=== PATIENT | female | born 1980 | race Caucasian/White ===

== ENCOUNTER 2020-11-19 16:57 | Outpatient (CLI) | payer OTHER, SELFPAY ==
--- NOTE | ~2020-11-19 | MM_ITS ---
EXAMINATION: MM screening arelis BI w fred HISTORY: Screening TECHNIQUE: Craniocaudal and mediolateral oblique 3-D tomosynthesis images were obtained and synthetic 2-D images were generated. CAD analysis was submitted and interpreted. COMPARISON: No prior mammogram is available for comparison at this institution. BREAST PARENCHYMAL COMPOSITION: There are scattered areas of fibroglandular density. FINDINGS: There is no evidence of suspicious mass, calcification, or architectural distortion to sugg est malignancy in either breast. There has been no suspicious interval change. IMPRESSION: 1. No mammographic evidence of malignancy. 2. Recommend routine screening mammography in one year. BI-RADS Category 1: Negative Reviewed, dictated and finalized at location A.
== END 2020-11-19 16:58 | disposition home or self-care (01) ==
LOC: ANHIMG 17:00
PROVIDERS: PCP Family Medicine; Visit Provider Obstetrics & Gynecology
DX: Z12.31 Encounter for screening mammogram for malignant neoplasm of breast (principal)
CPT/HCPCS: 77063; 77067

== ENCOUNTER 2020-12-04 12:42 | Emergency (ER) | payer OTHER, SELFPAY ==
[2020-12-04 13:06] VITALS: BP 149/103; PULSE 91; RESP 16; TEMP 36.8; O2SAT 95
--- NOTE | 2020-12-04 13:10 | PC.NURSE ---
EDP Kanumuri notified of patient's presentation and symptoms. Per EDP Kanumconsuelo via verbal order read-back, order CBC, Trop baseline, CMP, and EKG.
--- NOTE | 2020-12-04 13:13 | ECG_ITS ---
Measurements Intervals [place] Rate: 82 P: 52 CO: 177 QRS: -19 QRSD: 99 T: 22 QT: 383 QTc: 449 Interpretive Statements SINUS RHYTHM INCOMPLETE RIGHT BUNDLE BRANCH BLOCK DELAYED PRECORDIAL R/S TRANSITION BORDERLINE ECG Electronically Signed On 12-04-2020 13:20:30 CDT by Emir Norman D.O.
[2020-12-04 13:33] LABS: Basophils Absolute Auto 0.1 K/mm3 (0.0-0.1); Basophils Percent Auto 0.6 % (0.2-1.2); Eosinophils Absolute Auto 0.1 K/mm3 (0-0.3); Eosinophils Percent Auto 1.6 % (0-4.4); Hematocrit 43.4 % (37.0-47.0); Immature Granulocyte Absolute 0.02 K/mm3 (0.00-0.031); Immature Granulocyte Percent A 0.2 % (0-0.5); Lymphocytes Absolute Auto 2.93 K/mm3 (0.9-3.2); Lymphocytes Percent Auto 36.5 % (18.3-44.2); Mean Corpuscular HGB Conc 32.3 g/dl (32-36); Mean Corpuscular Hemoglobin 28.9 pg (26-34); Mean Corpuscular Volume 89.5 fl (80-100); Mean Platelet Volume 10.6 fl (7.4-10.4); Monocytes Absolute Auto 0.4 K/mm3 (0.1-0.6); Neutrophils Absolute Auto 4.5 K/mm3 (1.3-6.7); Neutrophils Percent Auto 56.1 % (45.5-73.1); Platelet Count Result 252 k/mm3 (150-375); Red Blood Count 4.85 M/mm3 (4.2-5.4); Red Cell Distribution Width 14.3 % (11.5-14.5)
[2020-12-04 13:48] LABS: Alanine Aminotransferase 29 U/L (4-35); Albumin Level 4.1 g/dL (3.5-5.1); Alkaline Phosphatase 59 U/L (38-126); Anion Gap 8 mmol/L (8-16); Aspartate Amino Transferase 30 U/L (14-36); Bilirubin,Total 0.3 mg/dL (0.2-1.3); Blood Urea Nitrogen 12 mg/dL (7-17); Calcium 8.7 mg/dL (8.4-10.2); Carbon Dioxide 26 mmol/L (22-30); Chloride 108 mmol/L (98-107); Estimated CRCL calculation 125 ml/min; Estimated Glomerular Filt Rate > 60; Glucose 124 mg/dL (65-105); Potassium 3.2 mmol/L (3.4-5.0); Sodium 142 mmol/L (137-145)
[2020-12-04 14:00] LABS: Troponin I < 0.012 ng/mL (0.000-0.034)
[2020-12-04 14:19] VITALS: BP 159/85; PULSE 77; RESP 16; O2SAT 97
[2020-12-04 15:56] VITALS: BP 160/99; PULSE 76; RESP 13; O2SAT 99
[2020-12-04 15:58] VITALS: BP 160/99; PULSE 77; RESP 15; O2SAT 99
[2020-12-04] MEDS: cloNIDine HCL 0.1 MG TABLET 0.2 MG PO (16:34)
[2020-12-04 16:59] VITALS: BP 136/74; PULSE 82; RESP 17; O2SAT 100
--- NOTE | 2020-12-04 17:05 | ED.GENADULT ---
HPI - General Adult General Chief complaint: Recheck/Abnormal Lab/Rx Stated complaint: headache, tingling fingers, elevated bp Time Seen by Provider: 12/04/20 16:12 Source: patient Mode of arrival: ambulatory Limitations: no limitations History of Present Illness HPI narrative: 40-year-old with a history of hypertension here with complaints of headache and elevated blood pressure since this morning. Patient states that she was on blood pressure medication but it was discontinued by her primary doctor as it was stable for a long period of time however she states that she has put on significant amount of weight since last year and has not been exercising. She presently denies any headache or visual disturbances or chest pain. Patient states she was taking lisinopril at that time. Onset (ago): day(s) (1) Severity: mild Exacerbating factors: none Associated symptoms: denies other symptoms Related Data Allergies Allergy/AdvReac Type Severity Reaction Status Date / Time codeine Allergy Intermediate Nausea Verified 12/04/20 16:00 Pertussis Vaccines Allergy Intermediate Swelling Verified 12/04/20 16:00 PERTUSSIS IMMUNE GLOBULIN Allergy Mild Swelling Uncoded 12/04/20 16:00 Review of Systems Review of Systems: All systems reviewed & are unremarkable except as noted in HPI and below Constitutional: Constitutional: Reports no additional constitutional complaints Eyes: Eyes: Reports no additional eye complaints Cardiovascular: Cardiovascular: Reports no additional cardiovascular complaints Respiratory: Respiratory: Reports no additional respiratory complaints Gastrointestinal: Gastrointestinal: Reports no additional gastrointestinal complaints Musculoskeletal: Musculoskeletal: Reports no additional musculoskeletal complaints Neurologic: Reports system reviewed and no additional complaints, except as documented PMFSH Social History Social History Smoking status: Current every day smoker Exam Narrative: Exam Narrative: GENERAL: Well-appearing, well-nourished, and in no acute distress. HEAD: Normocephalic, atraumatic. EYES: PERRLA and EOMI. ENT: Nares clear, no rhinorrhea or epistaxis. Mucous membranes moist. NECK: Supple. CHEST: Clear to auscultation. No respiratory distress. HEART: Regular rate and rhythm. No murmur heard. Normal peripheral pulses. EXTREMITIES: Normal range of motion. No edema. SKIN: Warm, dry, no rash. NEURO: No focal deficits. Alert and oriented x3. PSYCH: Normal mood and affect. Course Course Emergency Course: I have given her clonidine 0.2 which brought her pressure down to 141/81. She does feel much better. I have reviewed her lab work and EKG findings with her. Advised her to start taking blood pressure medication and follow-up with Dr. Clark next week. Vital Signs Vital signs: Vital Signs Temperature 36.8 C 12/04/20 13:06 Pulse Rate 91 12/04/20 13:06 Respiratory Rate 16 12/04/20 13:06 Blood Pressure 149/103 H 12/04/20 13:06 Pulse Oximetry 95 12/04/20 13:06 Temperature 36.8 C 12/04/20 13:06 Pulse Rate 82 12/04/20 16:59 Respiratory Rate 17 12/04/20 16:59 Blood Pressure 136/74 12/04/20 16:59 Pulse Oximetry 100 12/04/20 16:59 Medical Decision Making Vital Signs Vital Signs: Vital Signs Temperature 36.8 C 12/04/20 13:06 Pulse Rate 91 12/04/20 13:06 Respiratory Rate 16 12/04/20 13:06 Blood Pressure 149/103 H 12/04/20 13:06 Pulse Oximetry 95 12/04/20 13:06 Temperature 36.8 C 12/04/20 13:06 Pulse Rate 82 12/04/20 16:59 Respiratory Rate 17 12/04/20 16:59 Blood Pressure 136/74 12/04/20 16:59 Pulse Oximetry 100 12/04/20 16:59 Lab Data Result diagrams: 12/04/20 13:23 12/04/20 13:23 Labs: Lab Results 12/04/20 12/04/20 Range/Units 13:23 13:23 WBC 8.0 (4.5-10.0) K/mm3 RBC 4.85 (4.2-5.4) M/mm3 Hgb 14.0 (12.0-15.0) g/dL Hct 43.4 (37.0-47.0) % MCV 89.5 (
[2020-12-04 17:19] VITALS: BP 141/81; PULSE 87; RESP 21; O2SAT 96
== END 2020-12-04 17:23 | disposition home or self-care (01) ==
PROVIDERS: Emergency Provider Family Medicine; PCP Family Medicine
DX: I10 Essential (primary) hypertension (principal)
CPT/HCPCS: 36415; 80053; 84484; 85025; 93005; 99284; A9270

== ENCOUNTER 2021-05-04 12:37 | Emergency (ER) | payer OTHER, SELFPAY ==
--- NOTE | 2021-05-04 12:40 | ED.URI ---
HPI - URI/Sore Throat General Chief Complaint: Upper Respiratory Infection Stated Complaint: Congestion,Cough Time Seen by Provider: 05/04/21 12:40 Source: patient and RN notes reviewed History of Present Illness HPI Narrative: Patient is a 40-year-old female presents the urgent care with complaints of cough and congestion for the last 2 weeks. Patient also reports of green nasal drainage. Patient states that everyone in her home is sick right now . States that everybody had tested negative for Covid when the symptoms first began. Patient states that she has been taking DayQuil, NyQuil and using cough drops without much improvement. Patient is a daily smoker and does continue to smoke throughout her illness. Patient denies of any shortness of breath or chest pain. Denies of sore throat. No other acute complaints. No acute distress noted. Patient aware of the plan of care. Some parts of this dictation were generated by voice recognition software and may contain typographical and/or grammatical inaccuracies. Related Data Allergies Allergy/AdvReac Type Severity Reaction Status Date / Time codeine Allergy Intermediate Nausea Verified 12/04/20 16:00 Pertussis Vaccines Allergy Intermediate Swelling Verified 12/04/20 16:00 PERTUSSIS IMMUNE GLOBULIN Allergy Mild Swelling Uncoded 12/04/20 16:00 Review of Systems Review of Systems: CONSTITUTIONAL: Denies fever, chills, or sweats. EYES: Denies visual changes, redness, or discharge. ENT: Reports of sinus congestion, postnasal drainage and rhinorrhea CARDIOVASCULAR: Denies chest pain, palpitations, or edema. RESPIRATORY: Reports of cough without dyspnea GASTROINTESTINAL: Denies abdominal pain, nausea, vomiting, or diarrhea. GENITOURINARY: Denies dysuria or hematuria. SKIN: Denies rash or itching. MUSCULOSKELETAL: Denies back pain, joint pain, or myalgia. NEUROLOGIC: Denies headache, numbness, or weakness. All other systems reviewed are negative, except as documented in HPI. PMFSH Social History Social History Smoking status: Current every day smoker Comments At the time of my signature, I reviewed and agree with the nursing past medical, surgical, social, and family history. There is no relevant family history pertinent to the patient complaint. Exam Narrative: GENERAL: This is a well-nourished, well-developed patient, in no apparent distress. HEAD: normocephalic, atraumatic. EYES: PERRL. Sclera clear/white. Vision is grossly intact. EARS: External ears normal, auditory canals clear and without drainage, TMs normal without perforation. Hearing grossly intact. NOSE: External nose normal with no obvious nasal discharge, nares without redness, clear rhinorrhea. THROAT: Mucous membranes moist, posterior pharynx clear. Postnasal drainage NECK: Neck supple, non-tender without lymphadenopathy CARDIOVASCULAR: Regular rate and rhythm without murmurs, gallops, or rubs. RESPIRATORY: Mild crackles bibasilar SKIN: warm, intact with no suspicious lesions or rash, good texture and turgor. NEURO: awake, alert, and oriented to person, place and time. There were no obvious focal neurologic abnormalities. EXTREMITIES: No clubbing, cyanosis, or edema. Course Vital Signs Vital signs: Vital Signs Temperature 98.0 F 05/04/21 12:43 Pulse Rate 102 H 05/04/21 12:43 Respiratory Rate 12 05/04/21 12:43 Blood Pressure 120/66 05/04/21 12:43 Pulse Oximetry 98 05/04/21 12:43 Temperature 98.0 F 05/04/21 12:43 Pulse Rate 102 H 05/04/21 12:43 Respiratory Rate 12 05/04/21 12:43 Blood Pressure 120/66 05/04/21 12:43 Pulse Oximetry 98 05/04/21 12:43 Reviewed MDM - URI/Sore Throat MDM Narrative Medical decision making narrative: Advised the patient to complete the oral antibiotic regimen as prescribed. Patient is aware that antibiotics do not treat viruses and viruses can last approximately 3 weeks. Therefore if the antibiotic does not seem to be improving your symptoms, co
[2021-05-04 12:43] VITALS: BP 120/66; PULSE 102; RESP 12; TEMP 36.7; O2SAT 98
== END 2021-05-04 13:05 | disposition home or self-care (01) ==
PROVIDERS: Emergency Provider Nurse Practitioner Family
DX: J40 Bronchitis, not specified as acute or chronic (principal); J32.9 Chronic sinusitis, unspecified; F17.200 Nicotine dependence, unspecified, uncomplicated
CPT/HCPCS: 99213; G0463

== ENCOUNTER 2022-02-28 12:02 | Emergency (ER) | payer OTHER, SELFPAY ==
--- NOTE | 2022-02-28 12:06 | ED.URI ---
HPI - URI/Sore Throat General Chief Complaint: Upper Respiratory Infection Stated Complaint: URI SYMPTOMS Time Seen by Provider: 02/28/22 12:06 Source: patient Mode of arrival: ambulatory Limitations: no limitations History of Present Illness HPI Narrative: Ms. Oconnell is a 41-year-old female presenting to the clinic today with complaints of upper respiratory symptoms x1 week. She reports she is having a productive cough with green phlegm, sinus pressure, nasal congestion, green nasal discharge. She denies any fever or chills. She is a current smoker. Does have history of COPD MD elicited complaint: sore throat and nasal congestion Related Data Home Medications Medication Instructions Recorded Confirmed albuterol sulfate 90 mcg/actuation inhalation 05/04/21 aerosol inhaler atorvastatin 10 mg tablet 05/04/21 budesonide-formoterol HFA 160 inhalation 05/04/21 mcg-4.5 mcg/actuation aerosol inhaler (Symbicort) bupropion HCl 100 mg tablet,12 hr PO 05/04/21 sustained-release calcium carbonate 600 mg-vitamin tablet 05/04/21 D3 5 mcg (200 unit) tablet (Calcium 600 + D(3)) escitalopram oxalate 10 mg tablet mg 05/04/21 estradiol 0.5 mg tablet mg 05/04/21 furosemide 20 mg tablet 05/04/21 gabapentin 800 mg tablet 05/04/21 hydrocodone 10 mg-acetaminophen tablet 05/04/21 325 mg tablet lisinopril 20 mg tablet 05/04/21 meloxicam 15 mg tablet 05/04/21 omeprazole 20 mg capsule,delayed 05/04/21 release sertraline 100 mg tablet 100 mg PO DAILY 05/04/21 spironolactone 25 mg tablet 25 mg PO DAILY 05/04/21 02/28/22 Allergies Allergy/AdvReac Type Severity Reaction Status Date / Time codeine Allergy Intermediate Nausea Verified 02/28/22 12:35 Pertussis Vaccines Allergy Intermediate Swelling Verified 02/28/22 12:35 PERTUSSIS IMMUNE GLOBULIN Allergy Mild Swelling Uncoded 02/28/22 12:35 Review of Systems Review of Systems: Pertinent positives per HPI. Patient denies any fever, chills, rash, visual changes, dizziness, shortness of breath, chest pain, palpitations, nausea, vomiting, diarrhea, constipation, abdominal pain, or any urinary issues. [facility] Social History Social History (Reviewed 02/28/22 @ 12:06 by MARC Caicedo Smoking status: Current every day smoker Comments At the time of my signature, I reviewed and agree with the nursing past medical, surgical, social, and family history. There is no relevant family history pertinent to the patient complaint. Exam Narrative: General: Well-developed, obese, in no apparent distress Head: Normocephalic, atraumatic Eyes: Pupils equally round and reactive to light bilaterally, EOM intact, sclera and conjunctive clear, no discharge, lids normal Ears: TMs intact and c dull, ear canals clear, no drainage, grossly hearing normal. Nose: Nares patent, no discharge, no inflammation, no sinus tenderness. Mouth: Oral pharynx without lesions or masses, good dentition, MMM. Oropharynx red, tonsillar enlargement without exudate Neck: Supple, trachea midline, mild enlargement of anterior cervical nodes, no thyroid masses or goiter palpable. Cardio: Regular rate and rhythm, s1 and s2 normal, no murmur appreciated. Resp: Diminished breath sounds in the bases otherwise clear, no rhonchi, rales, wheezing or rubs Course Course Emergency Course: Portions of this record may have been created with voice recognition software. Level of Care: Express Care Visit Vital Signs Vital signs: Vital Signs Temperature 37.1 C 02/28/22 12:15 Pulse Rate 109 H 02/28/22 12:15 Respiratory Rate 16 02/28/22 12:15 Blood Pressure 130/92 H 02/28/22 12:15 Pulse Oximetry 97 02/28/22 12:15 Oxygen Delivery Room Air 02/28/22 12:15 Temperature 37.1 C 02/28/22 12:15 Pulse Rate 109 H 02/28/22 12:15 Respiratory Rate 16 02/28/22 12:15 Blood Pressure 130/92 H 02/28/22 12:15 Pulse Oximetry 97 02/28/22 12:15 Oxygen Delivery Room Air
[2022-02-28 12:15] VITALS: BP 130/92; PULSE 109; RESP 16; TEMP 37.1; O2SAT 97
== END 2022-02-28 13:39 | disposition home or self-care (01) ==
PROVIDERS: Emergency Provider Nurse Practitioner Family; PCP Physician Assistant
DX: J01.10 Acute frontal sinusitis, unspecified (principal); Z20.822 Contact with and (suspected) exposure to COVID-19; F17.200 Nicotine dependence, unspecified, uncomplicated; E78.00 Pure hypercholesterolemia, unspecified; I10 Essential (primary) hypertension; J44.9 Chronic obstructive pulmonary disease, unspecified; Z86.16 Personal history of COVID-19
CPT/HCPCS: 87426; 99213; C9803; G0463

== ENCOUNTER 2022-03-11 09:12 | Emergency (ER) | payer OTHER, SELFPAY ==
--- NOTE | 2022-03-11 09:14 | ED.URI ---
HPI - URI/Sore Throat General Chief Complaint: Upper Respiratory Infection Stated Complaint: COUGH/LOSING VOICE Time Seen by Provider: 03/11/22 09:45 Source: patient and RN notes reviewed Mode of arrival: ambulatory Limitations: no limitations History of Present Illness HPI Narrative: 41-year-old female presents with concern for ongoing chest congestion, cough, burning with cough, hoarse voice. Reports she was treated 11 days ago without relief. She reports she has an appointment with her primary care doctor next week. She reports she has been busy taking care of sick family members to see her primary doctor. She reports she has been using multiple [id number] remedies such as [id number] cold medicine sinus medicine, sinus rinses without relief. MD elicited complaint: cough and other (Chest congestion) Related Data Home Medications Medication Instructions Recorded Confirmed albuterol sulfate 90 mcg/actuation 90 mcg inhalation PRN PRN 05/04/21 02/28/22 aerosol inhaler Shortness Of Breath Or Wheezing atorvastatin 10 mg tablet 10 mg PO DAILY 05/04/21 02/28/22 budesonide-formoterol HFA 160 1 inh inhalation DAILY 05/04/21 02/28/22 mcg-4.5 mcg/actuation aerosol inhaler (Symbicort) bupropion HCl 100 mg tablet,12 hr 100 mg PO DAILY 05/04/21 02/28/22 sustained-release calcium carbonate 600 mg-vitamin 1 tablet PO DAILY 05/04/21 02/28/22 D3 5 mcg (200 unit) tablet (Calcium 600 + D(3)) escitalopram oxalate 10 mg tablet 10 mg PO DAILY 05/04/21 02/28/22 estradiol 0.5 mg tablet 0.5 mg PO DAILY 05/04/21 02/28/22 furosemide 20 mg tablet 20 mg PO DAILY 05/04/21 02/28/22 gabapentin 800 mg tablet 800 mg PO QID 05/04/21 02/28/22 hydrocodone 10 mg-acetaminophen 1 tablet PO PRN PRN Pain 05/04/21 02/28/22 325 mg tablet meloxicam 15 mg tablet 15 mg PO PRN PRN Pain 05/04/21 02/28/22 omeprazole 20 mg capsule,delayed 20 mg PO DAILY 05/04/21 02/28/22 release sertraline 100 mg tablet 100 mg PO DAILY 05/04/21 02/28/22 spironolactone 25 mg tablet 25 mg PO DAILY 05/04/21 02/28/22 Allergies Allergy/AdvReac Type Severity Reaction Status Date / Time codeine Allergy Intermediate Nausea Verified 03/11/22 09:32 Pertussis Vaccines Allergy Intermediate Swelling Verified 03/11/22 09:32 PERTUSSIS IMMUNE GLOBULIN Allergy Mild Swelling Uncoded 03/11/22 09:32 Review of Systems Review of Systems: CONSTITUTIONAL: Report malaise EYES: Denies visual changes, redness, or discharge. ENT: Reports rhinorrhea, congestion, hoarse voice. Denies sinus pain, otalgia and sore throat. CARDIOVASCULAR: Denies chest pain, palpitations, or edema. RESPIRATORY: Reports cough, chest congestion, chest burning, dyspnea. GASTROINTESTINAL: Denies abdominal pain, nausea, vomiting, diarrhea SKIN: Denies rash or itching. MUSCULOSKELETAL: Denies myalgia. NEUROLOGIC: Denies headache. All systems reviewed & are unremarkable except as noted in HPI and below PMFSH Social History Social History Smoking status: Current every day smoker Comments At time of signature, agree with nursing past medical, surgical, social and family history. There is no relevant family history pertinent to the presenting complaint Exam Narrative: GENERAL: Nontoxic appearing and in no acute distress. HEAD: Normocephalic EYES: PERRLA, conjunctivae clear ENT: Nares clear, clear discharge. Mucous membranes moist. TM pearly forte with dull light reflex bilaterally; no tragal tenderness. Oropharynx not erythematous without lesions. Tonsils not enlarged and without exudate, no drooling, no hoarseness, no trismus, uvula midline. NECK: Supple. No lymphadenopathy CHEST: Scattered wheeze, aeration fair, breath sounds equal. No rhonchi, rales, or stridor. No respiratory distress, speaks in full sentences. HEART: Regular rate and rhythm. No murmur heard. SKIN: Warm, dry, no rash. NEURO: Alert and oriented x3. PSYCH: Tearful Course Co
[2022-03-11 09:28] VITALS: BP 139/81; PULSE 90; RESP 16; TEMP 36.3; O2SAT 98
[2022-03-11] MEDS: methylPREDNISolone SOD SUCC 125 MG VIAL IM (09:55)
[2022-03-11] MEDS: ALBUTEROL SULFATE NEB 2.5 MG/3 ML INH INHALATION (09:56)
[2022-03-11] MEDS: IPRATROPIUM BR 0.02% INH SOLN 0.5 MG/2.5 ML VIAL INHALATION (09:56)
== END 2022-03-11 10:53 | disposition home or self-care (01) ==
PROVIDERS: Emergency Provider Nurse Practitioner; PCP Physician Assistant
DX: J06.9 Acute upper respiratory infection, unspecified (principal); F17.200 Nicotine dependence, unspecified, uncomplicated
CPT/HCPCS: 94640; 96372; 99213; G0463; J2930

== ENCOUNTER 2022-09-29 17:42 | Emergency (ER) | payer OTHER, SELFPAY ==
--- NOTE | ~2022-09-29 | CT_ITS ---
EXAMINATION: CT lumbar spine wo con DATE: 09/29/2022 21:08 INDICATION: Low back pain TECHNIQUE: Computed tomography (CT) of the lumbar spine was performed without intravenous contrast. T he dose-length product (DLP) was 1471.21 mGy-cm. Iterative reconstruction was used. COMPARISON: None FINDINGS: No fracture, dislocation, or subluxation. There is mild loss of intervertebral disc space h eight at L3-4 and L5-S1. The vertebral body heights are maintained. IMPRESSION: 1. No acute osseous abnormality. Reviewed, dictated and finalized at location F.
[2022-09-29 18:03] VITALS: BP 116/67; PULSE 99; RESP 18; TEMP 36.9; O2SAT 98
[2022-09-29] MEDS: KETOROLAC (*BKC) 60 MG/2 ML VIAL IM (20:58)
[2022-09-29] MEDS: diazePAM INJ (*CRX) 10 MG/2 ML SYRINGE 2 MG IM (20:58)
--- NOTE | 2022-09-29 21:22 | ED.BACK ---
HPI - Back Pain/Injury General Chief Complaint: Back Pain/Injury Stated Complaint: back pain Time Seen by Provider: 09/29/22 20:03 Source: patient Mode of arrival: ambulatory Limitations: no limitations History of Present Illness HPI Narrative: Patient is a 42-year-old female who presents to the ED with report of lower back pain. Patient reports she turned over in bed 2 nights ago and experienced pain in her low back. She has had persistent pain since then, worse with any type of movement, twisting, walking. Patient has been taking ibuprofen and her Flexeril at home without much improvement. She last had medication at 3 PM. Denies any abdominal pain, nausea, vomiting, fevers, saddle anesthesia, numbness, weakness, incontinence. Patient reports a history of bulging discs in the past. Related Data Home Medications Medication Instructions Recorded Confirmed albuterol sulfate 90 mcg/actuation 90 mcg inhalation PRN PRN 05/04/21 02/28/22 aerosol inhaler Shortness Of Breath Or Wheezing atorvastatin 10 mg tablet 10 mg PO DAILY 05/04/21 02/28/22 budesonide-formoterol HFA 160 1 inh inhalation DAILY 05/04/21 02/28/22 mcg-4.5 mcg/actuation aerosol inhaler (Symbicort) bupropion HCl 100 mg tablet,12 hr 100 mg PO DAILY 05/04/21 02/28/22 sustained-release calcium carbonate 600 mg-vitamin 1 tablet PO DAILY 05/04/21 02/28/22 D3 5 mcg (200 unit) tablet (Calcium 600 + D(3)) escitalopram oxalate 10 mg tablet 10 mg PO DAILY 05/04/21 02/28/22 estradiol 0.5 mg tablet 0.5 mg PO DAILY 05/04/21 02/28/22 furosemide 20 mg tablet 20 mg PO DAILY 05/04/21 02/28/22 gabapentin 800 mg tablet 800 mg PO QID 05/04/21 02/28/22 hydrocodone 10 mg-acetaminophen 1 tablet PO PRN PRN Pain 05/04/21 02/28/22 325 mg tablet meloxicam 15 mg tablet 15 mg PO PRN PRN Pain 05/04/21 02/28/22 omeprazole 20 mg capsule,delayed 20 mg PO DAILY 05/04/21 02/28/22 release sertraline 100 mg tablet 100 mg PO DAILY 05/04/21 02/28/22 spironolactone 25 mg tablet 25 mg PO DAILY 05/04/21 02/28/22 Allergies Allergy/AdvReac Type Severity Reaction Status Date / Time codeine Allergy Intermediate Nausea Verified 09/29/22 20:03 Pertussis Vaccines Allergy Intermediate Swelling Verified 09/29/22 20:03 PERTUSSIS IMMUNE GLOBULIN Allergy Mild Swelling Uncoded 09/29/22 18:07 Review of Systems Review of Systems: CONSTITUTIONAL: Denies fever, chills, or sweats. CARDIOVASCULAR: Denies chest pain. RESPIRATORY: Denies dyspnea. GASTROINTESTINAL: Denies incontinence, abdominal pain, nausea, vomiting. GENITOURINARY: Denies incontinence, dysuria or hematuria. SKIN: Denies rash or itching. MUSCULOSKELETAL: See HPI. NEUROLOGIC: See HPI. All systems reviewed & are unremarkable except as noted in HPI and below PMFSH Past Medical History Medical History Crohn's disease (02/28/12) Depression (02/28/12) GERD (gastroesophageal reflux disease) (02/28/12) Surgical History Surgical History No pertinent past surgical history Social History Social History Smoking status: Current every day smoker Exam Narrative: GENERAL: Well appearing, obese, non-toxic, in no acute distress. HEAD: Normocephalic, atraumatic. NECK: Supple. No adenopathy, no masses. RESPIRATORY: Airway patent, respirations nonlabored. Clear to auscultation bilaterally, no rales, rhonchi, wheezing. CARDIOVASCULAR: Regular rate and rhythm without murmurs, rubs, or gallops. Radial pulses 2+ and equal bilaterally. ABDOMINAL: Soft, nontender, nondistended, no hepatosplenomegaly. Normoactive BS. MUSCULOSKELETAL: Moves all extremities. Strength/ROM intact without gross deformities. Tenderness throughout midline lumbar spine and paraspinal musculature bilaterally. No bony deformities or palpable step-offs. SKIN: Warm, dry, normal color. No rashes. N
[2022-09-29] MEDS: HYDROcodone/acetaminophen (*CRX) 5-325 MG TABLET 1 TAB PO (22:03)
[2022-09-29] MEDS: methylPREDNISolone SOD SUCC 125 MG VIAL IM (22:28)
[2022-09-29 23:15] VITALS: BP 135/91; PULSE 96; RESP 16; O2SAT 99
== END 2022-09-29 23:16 | disposition home or self-care (01) ==
PROVIDERS: Emergency Provider Physician Assistant; PCP Internal Medicine Gastroenterology
DX: S39.012A Strain of muscle, fascia and tendon of lower back, initial encounter (principal); K50.90 Crohn's disease, unspecified, without complications; K21.9 Gastro-esophageal reflux disease without esophagitis; F32.A Depression, unspecified; F17.200 Nicotine dependence, unspecified, uncomplicated; X50.9XXA Other and unspecified overexertion or strenuous movements or postures, initial encounter
CPT/HCPCS: 72131; 96372; 99284; A9270; J1885; J2930; J3360

== ENCOUNTER 2022-10-11 12:42 | Outpatient (CLI) | payer OTHER, SELFPAY ==
--- NOTE | ~2022-10-11 | XR_ITS ---
EXAMINATION:XR cervical spine 4-5V DATE: 10/11/2022 13:08 INDICATION: Neck pain TECHNIQUE: AP, lateral, lateral swimmers and odontoid views of the cervical spine are provided. COMPARISON: None FINDINGS: There is reversal of the normal cervical lordosis. Alignment is normal. The odontoid proces s is intact. No fracture is identified. The vertebral body heights are maintained. There is mild loss of intervertebral disc space height at C4-5, C5-6, and C6-7. Small degenerative osteophytes project from the anterior endplates of multiple vertebral bodies. Prevertebral soft tissues are normal. IMPRESSION: 1. Mild cervical spondylosis without acute findings. Reviewed, dictated and finalized at location L.
--- NOTE | ~2022-10-11 | XR_ITS ---
EXAMINATION: XR shoulder RT min 2V INDICATION: Right shoulder pain TECHNIQUE: Four views of the right shoulder are submitted. COMPARISON: None FINDINGS: Normal alignment. No fracture. There is moderate osteoarthritis of the acromioclavicular an d glenohumeral joints. Soft tissues are unremarkable. IMPRESSION: 1. Osteoarthritis without acute osseous abnormality. Reviewed, dictated and finalized at location L.
== END 2022-10-11 12:43 | disposition home or self-care (01) ==
PROVIDERS: PCP Internal Medicine Gastroenterology; Visit Provider Internal Medicine Gastroenterology
DX: M19.011 Primary osteoarthritis, right shoulder (principal); M47.812 Spondylosis without myelopathy or radiculopathy, cervical region
CPT/HCPCS: 72050; 73030

== ENCOUNTER 2022-10-11 23:37 | Emergency (ER) | payer OTHER, SELFPAY ==
--- NOTE | ~2022-10-11 | XR_ITS ---
EXAMINATION: XR chest 2V DATE: 10/12/2022 00:08 INDICATION: Left chest pain. TECHNIQUE: Frontal and lateral views of the chest were obtained. COMPARISON: Chest 2 views 03/04/2009 FINDINGS: The chest demonstrates clear lungs without pneumonia, pleural effusion, or pneumothorax. Th e heart size is normal. IMPRESSION: 1. No acute cardiopulmonary disease. Reviewed, dictated and finalized at location A.
[2022-10-11 23:39] VITALS: BP 127/73; PULSE 82; RESP 18; TEMP 36.6; O2SAT 99
--- NOTE | 2022-10-11 23:41 | ECG_ITS ---
Measurements Intervals [place] Rate: 76 P: 71 [place]: 179 QRS: 42 QRSD: 96 T: 53 QT: 387 QTc: 438 Interpretive Statements SINUS RHYTHM POSSIBLE LEFT ATRIAL ENLARGEMENT [-0.1mV P WAVE IN V1/V2] INCOMPLETE RIGHT BUNDLE BRANCH BLOCK LOW QRS VOLTAGE IN PRECORDIAL LEADS [QRS DEFLECTION < 1.0 mV IN CHEST LEADS] COMPARED TO ECG 12/04/2020 13:17:49 NO SIGNIFICANT CHANGES Electronically Signed On 10-12-2022 9:44:29 CDT by Song Lamar M.D.
[2022-10-11 23:47] VITALS: PULSE 73; RESP 11; O2SAT 99
[2022-10-11 23:52] LABS: Basophils Absolute Auto 0.1 K/mm3 (0.0-0.1); Basophils Percent Auto 0.4 % (0.2-1.2); Eosinophils Absolute Auto 0.4 K/mm3 (0-0.3); Eosinophils Percent Auto 3.1 % (0-4.4); Hematocrit 42.3 % (37.0-47.0); Hemoglobin 13.8 g/dL (12.0-15.0); Immature Granulocyte Absolute 0.06 K/mm3 (0.00-0.031); Immature Granulocyte Percent A 0.5 % (0-0.5); Lymphocytes Absolute Auto 4.44 K/mm3 (0.9-3.2); Lymphocytes Percent Auto 37.1 % (18.3-44.2); Mean Corpuscular HGB Conc 32.6 g/dl (32-36); Mean Corpuscular Hemoglobin 29.1 pg (26-34); Mean Corpuscular Volume 89.1 fl (80-100); Mean Platelet Volume 10.4 fl (7.4-10.4); Monocytes Absolute Auto 0.5 K/mm3 (0.1-0.6); Monocytes Percent Auto 4.2 % (2.6-8.5); Neutrophils Absolute Auto 6.6 K/mm3 (1.3-6.7); Neutrophils Percent Auto 54.7 % (45.5-73.1); Platelet Count Result 255 k/mm3 (150-375); Red Blood Count 4.75 M/mm3 (4.2-5.4); Red Cell Distribution Width 14.4 % (11.5-14.5)
[2022-10-12] VITALS: O2SAT 96
[2022-10-12 00:01] VITALS: BP 114/57; PULSE 80; RESP 18; O2SAT 96
[2022-10-12 00:06] LABS: Prothrombin Time 13.1 Seconds (11.1-14.7)
[2022-10-12 00:07] LABS: Partial Thromboplastin Time 27.1 SECONDS (22.3-36.8)
[2022-10-12 00:10] LABS: Alanine Aminotransferase 29 U/L (6-35); Albumin Level 4.2 g/dL (3.5-5.1); Alkaline Phosphatase 75 U/L (38-126); Anion Gap 8 mmol/L (8-16); Aspartate Amino Transferase 24 U/L (14-36); Bilirubin,Total 0.6 mg/dL (0.2-1.3); Blood Urea Nitrogen 16 mg/dL (7-17); Calcium 8.9 mg/dL (8.4-10.2); Carbon Dioxide 29 mmol/L (22-30); Chloride 102 mmol/L (98-107); Estimated CRCL calculation 164 ml/min; Estimated Glomerular Filt Rate > 60; Glucose 132 mg/dL (65-110); Potassium 3.4 mmol/L (3.4-5.0); Sodium 139 mmol/L (137-145)
[2022-10-12 00:15] VITALS: PULSE 78; RESP 20; O2SAT 98
[2022-10-12 00:22] LABS: Troponin I < 0.012 ng/mL (0.000-0.034)
[2022-10-12] MEDS: ACETAMINOPHEN 500 MG TABLET 1000 MG PO (01:20)
[2022-10-12] MEDS: methocarbamoL 750 MG TABLET 1500 MG PO (01:21)
[2022-10-12] MEDS: IBUPROFEN 400 MG TABLET 800 MG PO (01:21)
--- NOTE | 2022-10-12 02:07 | ED.GENADULT ---
HPI - General Adult General Chief complaint: Chest Pain Stated complaint: CP X 1 WEEK Time Seen by Provider: 10/11/22 23:41 History of Present Illness HPI narrative: this is a 42-year-old female presenting ED with chief complaint of left-sided chest pain. Pain is located over the outside of her left breast, left shoulder and left trapezius. Been going on for 1 week as a stabbing/aching pain. Seven out 10 intensity and comes and goes. It is worse when she moves her arm and shoulder. She has not taken any pain medication. She has noticed she has had a cough although she has a chronic smoker's cough. No fever chills, shortness of breath abdominal pain nausea or vomiting. Related Data Home Medications Medication Instructions Recorded Confirmed albuterol sulfate 90 mcg/actuation 90 mcg inhalation PRN PRN 05/04/21 02/28/22 aerosol inhaler Shortness Of Breath Or Wheezing atorvastatin 10 mg tablet 10 mg PO DAILY 05/04/21 02/28/22 budesonide-formoterol HFA 160 1 inh inhalation DAILY 05/04/21 02/28/22 mcg-4.5 mcg/actuation aerosol inhaler (Symbicort) bupropion HCl 100 mg tablet,12 hr 100 mg PO DAILY 05/04/21 02/28/22 sustained-release calcium carbonate 600 mg-vitamin 1 tablet PO DAILY 05/04/21 02/28/22 D3 5 mcg (200 unit) tablet (Calcium 600 + D(3)) escitalopram oxalate 10 mg tablet 10 mg PO DAILY 05/04/21 02/28/22 estradiol 0.5 mg tablet 0.5 mg PO DAILY 05/04/21 02/28/22 furosemide 20 mg tablet 20 mg PO DAILY 05/04/21 02/28/22 gabapentin 800 mg tablet 800 mg PO QID 05/04/21 02/28/22 hydrocodone 10 mg-acetaminophen 1 tablet PO PRN PRN Pain 05/04/21 02/28/22 325 mg tablet meloxicam 15 mg tablet 15 mg PO PRN PRN Pain 05/04/21 02/28/22 omeprazole 20 mg capsule,delayed 20 mg PO DAILY 05/04/21 02/28/22 release sertraline 100 mg tablet 100 mg PO DAILY 05/04/21 02/28/22 spironolactone 25 mg tablet 25 mg PO DAILY 05/04/21 02/28/22 Allergies Allergy/AdvReac Type Severity Reaction Status Date / Time codeine Allergy Intermediate Nausea Verified 09/29/22 20:03 Pertussis Vaccines Allergy Intermediate Swelling Verified 09/29/22 20:03 PERTUSSIS IMMUNE GLOBULIN Allergy Mild Swelling Uncoded 09/29/22 18:07 [facility] Past Medical History Medical History Crohn's disease (02/28/12) Depression (02/28/12) GERD (gastroesophageal reflux disease) (02/28/12) Surgical History Surgical History No pertinent past surgical history Social History Social History Smoking status: Current every day smoker Exam Narrative: APPEARANCE: No apparent distress. Head: atraumatic. EYES: EOMI, NOSE: Atraumatic NECK: Trachea midline RESPIRATORY: No increased rate of breathing CARDIOVASCULAR: RRR, ABDOMINAL: Non-distended MUSCULOSKELETAl: Patient has tenderness to palpation over the left pectoral muscles, left trapezius and left posterior deltoid, pain is reproducible when she moves her arm NEURO: Alert. Moving 4/4 extremities SKIN:: Warm, dry. Normal color PSYCHIATRIC: Normal affect Course Vital Signs Vital signs: Vital Signs Temperature 98 F 10/11/22 23:39 Pulse Rate 82 10/11/22 23:39 Respiratory Rate 18 10/11/22 23:39 Blood Pressure 127/73 10/11/22 23:39 Pulse Oximetry 99 10/11/22 23:39 Oxygen Delivery Room Air 10/11/22 23:39 Temperature 98 F 10/12/22 02:42 Pulse Rate 77 10/12/22 02:42 Respiratory Rate 18 10/12/22 02:42 Blood Pressure 123/79 10/12/22 02:42 Pulse Oximetry 99 10/12/22 02:42 Oxygen Delivery Room Air 10/11/22 23:39 Medical Decision Making MDM Narrative Medical decision making narrative: -Presentation: 42-year-old female presenting with chief complaint of chest/shoulder pain -DDX includes but is not limited to: MSK pain, shoulder impingement, pneumonia, P -Co-morbidities complicating care:
[2022-10-12 02:42] VITALS: BP 123/79; PULSE 77; RESP 18; TEMP 36.6; O2SAT 99
[2022-10-12 05:07] LABS: Troponin I < 0.012 ng/mL (0.000-0.034)
[2022-10-12 05:21] VITALS: BP 118/69; PULSE 77; RESP 18; TEMP 37.2; O2SAT 99
== END 2022-10-12 05:22 | disposition home or self-care (01) ==
PROVIDERS: Emergency Provider Emergency Medicine; PCP Internal Medicine Gastroenterology
DX: M25.512 Pain in left shoulder (principal); F32.A Depression, unspecified; K21.9 Gastro-esophageal reflux disease without esophagitis
CPT/HCPCS: 36415; 71046; 72050; 73030; 80053; 84484; 85025; 85610; 85730; 93005; 99284; A9270

== ENCOUNTER 2022-12-01 08:46 | Emergency (ER) | payer OTHER, SELFPAY ==
--- NOTE | ~2022-12-01 | XR_ITS ---
EXAMINATION: XR chest 2V DATE: 12/01/2022 10:00 INDICATION: Cough. TECHNIQUE: Frontal and lateral views of the chest were obtained. COMPARISON: Chest 2 views 10/12/2022 FINDINGS: The chest demonstrates clear lungs without pneumonia, pleural effusion, or pneumothorax. Th e heart size is normal. IMPRESSION: 1. No acute cardiopulmonary disease. Reviewed, dictated and finalized at location A.
[2022-12-01 08:57] VITALS: BP 131/70; PULSE 98; RESP 20; TEMP 36.1; O2SAT 99
--- NOTE | 2022-12-01 09:29 | ED.URI ---
HPI - URI/Sore Throat General Chief Complaint: Upper Respiratory Infection Stated Complaint: cough,sore throat,chest pain Time Seen by Provider: 12/01/22 09:11 Source: patient and RN notes reviewed Mode of arrival: ambulatory Limitations: no limitations History of Present Illness HPI Narrative: Patient presents today complaining of a 10 day history of productive cough and a 4 day history of sore throat. Associated symptoms include rhinorrhea. Denies congestion or fever. Denies shortness of breath. She has been gargling with salt water. Currently rates her pain 8/10. She has tried no [id number] medications for symptoms prior to arrival. Reports recent exposure to strep throat. with similar symptoms. Related Data Home Medications Medication Instructions Recorded Confirmed albuterol sulfate 90 mcg/actuation 90 mcg inhalation PRN PRN 05/04/21 12/01/22 aerosol inhaler Shortness Of Breath Or Wheezing atorvastatin 10 mg tablet 10 mg PO DAILY 05/04/21 12/01/22 budesonide-formoterol HFA 160 1 inh inhalation DAILY 05/04/21 12/01/22 mcg-4.5 mcg/actuation aerosol inhaler (Symbicort) calcium carbonate 600 mg-vitamin 1 tablet PO DAILY 05/04/21 12/01/22 D3 5 mcg (200 unit) tablet (Calcium 600 + D(3)) furosemide 20 mg tablet 20 mg PO DAILY 05/04/21 12/01/22 gabapentin 800 mg tablet 800 mg PO QID 05/04/21 12/01/22 omeprazole 20 mg capsule,delayed 20 mg PO DAILY 05/04/21 12/01/22 release spironolactone 25 mg tablet 25 mg PO DAILY 05/04/21 12/01/22 acetaminophen 500 mg tablet 1,000 mg PO TID PRN Pain 12/01/22 12/01/22 cyclobenzaprine 10 mg tablet 10 mg PO TID 12/01/22 12/01/22 duloxetine 60 mg capsule,delayed 60 mg PO DAILY 12/01/22 12/01/22 release tramadol 50 mg tablet 50 mg PO TID 12/01/22 12/01/22 Allergies Allergy/AdvReac Type Severity Reaction Status Date / Time codeine Allergy Intermediate Nausea Verified 12/01/22 08:58 Pertussis Vaccines Allergy Intermediate Swelling Verified 12/01/22 08:58 PERTUSSIS IMMUNE GLOBULIN Allergy Mild Swelling Uncoded 12/01/22 08:58 Review of Systems Review of Systems: CONSTITUTIONAL: Denies body aches, fever, chills, or sweats. EYES: Denies visual changes, redness, or discharge. ENT: Denies congestion, or otalgia.+ rhinorrhea, sore throat CARDIOVASCULAR: Denies chest pain, palpitations, or edema. RESPIRATORY: Denies dyspnea.+ cough GASTROINTESTINAL: Denies abdominal pain, nausea, vomiting, or diarrhea. GENITOURINARY: Denies dysuria or hematuria. SKIN: Denies rash, itching, or wounds. MUSCULOSKELETAL: Denies back pain, joint pain, or myalgia. NEUROLOGIC: Denies headache, numbness, tingling, or weakness. PSYCH: Denies depression or anxiety. [facility] Past Medical History Medical History Crohn's disease (02/28/12) Depression (02/28/12) GERD (gastroesophageal reflux disease) (02/28/12) Surgical History Surgical History No pertinent past surgical history Family History Family History Father Hypertension Malignant neoplasm of prostate Family history of malignant neoplasm Mother Hypertension Family history of diabetes mellitus in first degree relative Depression Family history of attention deficit hyperactivity disorder (ADHD) Sibling Asthma Family history of attention deficit hyperactivity disorder (ADHD) Other Diabetes mellitus Social History Social History Smoking status: Current every day smoker Second hand tobacco smoke exposure: Yes Alcohol intake: never Comments At time of signature, I have reviewed and agree with nursing past medical, surgical, social and family history unless otherwise noted. Please see nursing chart for further information. There is no relevant family history pertine
== END 2022-12-01 10:29 | disposition home or self-care (01) ==
PROVIDERS: Emergency Provider Nurse Practitioner; PCP Internal Medicine Gastroenterology
DX: J01.90 Acute sinusitis, unspecified (principal); F17.200 Nicotine dependence, unspecified, uncomplicated; K50.90 Crohn's disease, unspecified, without complications; K21.9 Gastro-esophageal reflux disease without esophagitis
CPT/HCPCS: 71046; 87081; 87880; 99213; G0463

== ENCOUNTER 2023-10-27 19:22 | Emergency (ER) | payer OTHER, SELFPAY ==
--- NOTE | 2023-10-27 19:23 | ED.URI ---
HPI - URI/Sore Throat General Chief Complaint: Upper Respiratory Infection Stated Complaint: BODY ACHES/VOMITING/CONGESTION Time Seen by Provider: 10/27/23 19:23 Source: patient Mode of arrival: ambulatory Limitations: no limitations History of Present Illness HPI Narrative: Lexie is a 43-year-old female patient presenting to the clinic today with complaints of body aches, headache, sore throat, cough, nasal congestion, nausea, and vomiting x3 days. She reports no known fever. MD elicited complaint: sore throat and nasal congestion Related Data Home Medications Medication Instructions Recorded Confirmed albuterol sulfate 90 mcg/actuation 90 mcg inhalation PRN PRN 05/04/21 10/27/23 aerosol inhaler Shortness Of Breath Or Wheezing atorvastatin 10 mg tablet 10 mg PO DAILY 05/04/21 10/27/23 budesonide-formoterol HFA 160 1 inh inhalation DAILY 05/04/21 10/27/23 mcg-4.5 mcg/actuation aerosol inhaler (Symbicort) furosemide 20 mg tablet 20 mg PO DAILY 05/04/21 10/27/23 gabapentin 800 mg tablet 800 mg PO QID 05/04/21 10/27/23 omeprazole 20 mg capsule,delayed 20 mg PO DAILY 05/04/21 10/27/23 release spironolactone 25 mg tablet 25 mg PO DAILY 05/04/21 10/27/23 acetaminophen 500 mg tablet 1,000 mg PO TID PRN Pain 12/01/22 10/27/23 cyclobenzaprine 10 mg tablet 10 mg PO TID 12/01/22 10/27/23 duloxetine 60 mg capsule,delayed 60 mg PO DAILY 12/01/22 10/27/23 release tramadol 50 mg tablet 50 mg PO TID 12/01/22 10/27/23 Allergies Allergy/AdvReac Type Severity Reaction Status Date / Time codeine Allergy Intermediate Nausea Verified 10/27/23 19:28 Pertussis Vaccines Allergy Intermediate Swelling Verified 10/27/23 19:28 PERTUSSIS IMMUNE GLOBULIN Allergy Mild Swelling Uncoded 10/27/23 19:28 Review of Systems Review of Systems: Pertinent positives per HPI. Patient denies any fever, rash, visual changes, dizziness, shortness of breath, chest pain, palpitations, diarrhea, constipation, abdominal pain, or any urinary issues. [facility] Past Medical History Medical History Crohn's disease (02/28/12) Depression (02/28/12) GERD (gastroesophageal reflux disease) (02/28/12) Surgical History Surgical History No pertinent past surgical history Family History Family History Father Hypertension Malignant neoplasm of prostate Family history of malignant neoplasm Mother Hypertension Family history of diabetes mellitus in first degree relative Depression Family history of attention deficit hyperactivity disorder (ADHD) Sibling Asthma Family history of attention deficit hyperactivity disorder (ADHD) Other Diabetes mellitus Social History Social History Smoking status: Current every day smoker Second hand tobacco smoke exposure: Yes Alcohol intake: never Comments At the time of my signature, I reviewed and agree with the nursing past medical, surgical, social, and family history. There is no relevant family history pertinent to the patient complaint. Exam Narrative: General: Well-developed, well nourished, in no apparent distress Head: Normocephalic, atraumatic Eyes: Pupils equally round and reactive to light bilaterally, EOM intact, sclera and conjunctive clear, no discharge, lids normal Ears: TMs intact and congested, ear canals clear, no drainage, grossly hearing normal. Nose: Nares patent, clear nasal discharge, no inflammation, no sinus tenderness. Mouth: Oral pharynx red without lesions or masses, good dentition, MMM. Neck: Supple, trachea midline, no enlargement of anterior or posterior cervical nodes, no thyroid masses or goiter palpable. Cardio: Regular rate and rhythm, s1 and s2 normal, no murmur appreciated. Resp: Clear to auscultation bilaterally, no rhonch
[2023-10-27 19:39] VITALS: BP 131/87; PULSE 84; RESP 16; TEMP 36.3; O2SAT 99
== END 2023-10-27 19:51 | disposition home or self-care (01) ==
PROVIDERS: Emergency Provider Nurse Practitioner Family; PCP Internal Medicine Gastroenterology
DX: B34.9 Viral infection, unspecified (principal); J06.9 Acute upper respiratory infection, unspecified; J02.9 Acute pharyngitis, unspecified; Z20.822 Contact with and (suspected) exposure to COVID-19; F17.200 Nicotine dependence, unspecified, uncomplicated; K21.9 Gastro-esophageal reflux disease without esophagitis; K50.90 Crohn's disease, unspecified, without complications
CPT/HCPCS: 87081; 87426; 87804; 87880; 99213; G0463

== ENCOUNTER 2024-07-29 10:00 | Emergency (ER) | payer OTHER, SELFPAY ==
[2024-07-29 10:12] VITALS: BP 141/88; PULSE 90; RESP 16; TEMP 36.4; O2SAT 99
--- NOTE | 2024-07-29 10:23 | ED_ITS ---
HPI - General Adult General Chief complaint: Upper Respiratory Infection Stated complaint: Flu Symptoms Time Seen by Provider: 07/29/24 10:25 Source: patient, family, RN notes reviewed and old records reviewed Mode of arrival: ambulatory Limitations: no limitations History of Present Illness HPI narrative: 44-year-old female who presents to [facility] with complaints a 5 day history body aches, stuffy nose, ears feel clogged, productive cough. Patient reports she has taken Tylenol for her symptoms and is using her inhalers as prescribed, Patient reports that she does have COPD and she smokes daily 1/2 ppd of cigarettes.. Patient states that daughter tested positive for flu. MD complaint: productive cough, stuffy nose ears feel clogged productive cough Onset (ago): day(s) (5) Severity: moderate Treatments prior to arrival: other (Tylenol and inhalers) Related Data Home Medications ?Medication ?Instructions ?Recorded ?Confirmed ?Last Taken ?Type albuterol sulfate 90 mcg/actuation 90 mcg inhalation PRN PRN 05/04/21 07/29/24 Unknown History aerosol inhaler Shortness Of Breath Or Wheezing atorvastatin 10 mg tablet 10 mg PO DAILY 05/04/21 07/29/24 Unknown History budesonide-formoterol HFA 160 1 inh inhalation DAILY 05/04/21 07/29/24 Unknown History mcg-4.5 mcg/actuation aerosol inhaler (Symbicort) furosemide 20 mg tablet 20 mg PO PRN water retention 05/04/21 07/29/24 Unknown History gabapentin 800 mg tablet 800 mg PO QID 05/04/21 07/29/24 Unknown History omeprazole 20 mg capsule,delayed 20 mg PO DAILY 05/04/21 07/29/24 Unknown History release spironolactone 25 mg tablet 25 mg PO PRN PRN wheezing 05/04/21 07/29/24 Unknown History acetaminophen 500 mg tablet 1,000 mg PO TID PRN Pain 12/01/22 07/29/24 Unknown History cyclobenzaprine 10 mg tablet 10 mg PO TID 12/01/22 07/29/24 Unknown History duloxetine 60 mg capsule,delayed 60 mg PO DAILY 12/01/22 07/29/24 Unknown History release tramadol 50 mg tablet 50 mg PO TID 12/01/22 07/29/24 Unknown History Allergies Allergy/AdvReac Type Severity Reaction Status Date / Time codeine Allergy Intermediate Nausea Verified 07/29/24 10:05 Pertussis Vaccines Allergy Intermediate Swelling Verified 07/29/24 10:05 PERTUSSIS IMMUNE GLOBULIN Allergy Mild Swelling Uncoded 07/29/24 10:05 Review of Systems Review of Systems: CONSTITUTIONAL:Reports malaise, chills, sweats, no known fever. EYES: Denies visual changes, redness, or discharge. ENT: Reports rhinorrhea, congestion, sinus pain, no otalgia and no sore throat. CARDIOVASCULAR: Denies chest pain, palpitations, or edema. RESPIRATORY: Reports productive cough.? Denies acute dyspnea. GASTROINTESTINAL: Denies abdominal pain, nausea, vomiting, diarrhea SKIN: Denies rash or itching. MUSCULOSKELETAL: Reports myalgia. NEUROLOGIC: Denies headache. All systems reviewed & are unremarkable except as noted in HPI and below PMFSH Past Medical History Medical History AUDIE was hospitalized on June 2021 COPD (chronic obstructive pulmonary disease) GERD (gastroesophageal reflux disease) (02/28/12) Depression (02/28/12) Crohn's disease (02/28/12) Surgical History Surgical History Hx of cholecystectomy Family History Family History Father Hypertension Malignant neoplasm of prostate Family history of malignant neoplasm Mother Hypertension Family history of diabetes mellitus in first degree relative Depression Family history of attention deficit hyperactivity disorder (ADHD) Sibling Asthma Family history of attention deficit hyperactivity disorder (ADHD) Other Diabetes mellitus Social History Social History Smoking status: Current every day smoker Second hand tobacco smoke exposure: Yes Alcohol intake: never Comments At time of signature, agree with nursing past medical, surgical, social and family history. There is no relevant family history pertinent to the presenting complaint Exam Narrative: GENERAL: Well-appearing, well-nourished, and in no acute distress. HEAD: Normocephalic EYES: PERRLA, conjunctivae clear ENT: Nares clear, turbinates edematous and erythematous, clear discharge. Mucous membranes moist. TM pearly forte with dull light reflex bilaterally; no tragal tenderness. Oropharynx erythematous without lesions. Tonsils not enlarged and without exudate, no drooling, no hoarseness, no trismus, uvula midline. NECK: Supple. No lymphadenopathy CHEST: scattered wheezing on auscultation, breath sounds equal.+ wheezing, no rhonchi, rales, or stridor. No respiratory distress, speaks in full sentences. cough noted SAO2 99% on room air HEART: Regular rate and rhythm. No murmur heard. SKIN: Warm, dry, no rash. NEURO: Alert and oriented x3. PSYCH: Normal mood and affect Course Course Emergency Course: Patient is aware of diagnosis, understands and agrees to treatment plan.? Anticipatory guidance given.? Patient agrees to follow-up as directed and is aware of reasons to seek care at the emergency department. Portions of this record may have been created with voice recognition software Level of Care: Express Care Visit Vital Signs Vital signs: Vital Signs Temperature 36.4 C L 07/29/24 10:12 Pulse Rate 90 07/29/24 10:12 Respiratory Rate 16 07/29/24 10:12 Blood Pressure 141/88 H 07/29/24 10:12 Pulse Oximetry 99 07/29/24 10:12 Temperature 36.4 C L 07/29/24 10:12 Pulse Rate 90 07/29/24 10:12 Respiratory Rate 16 07/29/24 10:12 Blood Pressure 141/88 H 07/29/24 10:12 Pulse Oximetry 99 07/29/24 10:12 Reviewed Medical Decision Making Differential Diagnosis Differential Diagnosis: URI, viral infection, COPD exacerbation, influenza, acute cough Medical Records Medical records reviewed: Yes I reviewed the external patient's medical records. Vital Signs Vital Signs: Vital Signs Temperature 36.4 C L 07/29/24 10:12 Pulse Rate 90 07/29/24 10:12 Respiratory Rate 16 07/29/24 10:12 Blood Pressure 141/88 H 07/29/24 10:12 Pulse Oximetry 99 07/29/24 10:12 Temperature 36.4 C L 07/29/24 10:12 Pulse Rate 90 07/29/24 10:12 Respiratory Rate 16 07/29/24 10:12 Blood Pressure 141/88 H 07/29/24 10:12 Pulse Oximetry 99 07/29/24 10:12 reviewed Lab Data Lab results reviewed: Yes I reviewed the patient's lab results. Lab results narrative: Influenza A negative, Influenza B negative Labs: Lab Results 07/29/24 Range/Units 10:25 POC Influenza A Ag Negative (Negative) POC Influenza B Ag Negative (Negative) reviewed Critical Care Time Critical Care Time Critical Care Time: No Discharge Plan Discharge Clinical Impression: COPD exacerbation Patient Disposition: Home, Self-Care Condition: Stable Instructions: Antibiotic Form, COPD (Chronic Obstructive Pulmonary Disease) (ED) Additional Instructions: Increase fluids especially juices and water [id number] cough and cold medicine of your choice for your symptoms Zyrtec Claritin or Yahaira daily include Coricidin brand decongestant Continue your inhaler/nebulizer as directed use your rescue inhaler which is albuterol for the next 2 days at least 3 times daily to expand lungs Steroids as directed--take with food heat to the face 20-30 minutes 4-6 times a day for pain Salt water gargles, throat lozenges or throat sprays as desired Antibiotic as directed--finished the medication If your symptoms persist, change or worsen significantly before you can contact your personal physician then please, without delay, go to the emergency department for further evaluation. Follow-up with PCP in 7-10 days or sooner if needed Follow up with PCP soon in regards to your blood pressure which is elevated above threshold for referral. Blood pressure above 120/80 may indicate pre- hypertension.141/88 STOP SMOKING Patient Language: Hungarian Prescriptions: New prednisone 20 mg tablet 20 mg PO BID Qty: 10 0RF azithromycin 250 mg tablet See Rx Instructions .ROUTE .COMPLEX Qty: 6 0RF Rx Instructions: For 250 mg dose pack: take 500 mg today (day 1), then 250 mg for 4 days (days 2-5) No Action atorvastatin 10 mg tablet 10 mg PO DAILY spironolactone 25 mg tablet 25 mg PO PRN PRN (Reason: wheezing) gabapentin 800 mg tablet 800 mg PO QID omeprazole 20 mg capsule,delayed release(DR/EC) 20 mg PO DAILY furosemide 20 mg tablet 20 mg PO PRN albuterol sulfate 90 mcg/actuation HFA aerosol inhaler 90 mcg INHALATION PRN PRN (Reason: Shortness Of Breath Or Wheezing) budesonide-formoterol [Symbicort] 160-4.5 mcg/actuation HFA aerosol inhaler 1 inh INHALATION DAILY cyclobenzaprine 10 mg tablet 10 mg PO TID tramadol 50 mg tablet 50 mg PO TID duloxetine 60 mg capsule,delayed release(DR/EC) 60 mg PO DAILY acetaminophen 500 mg tablet 1,000 mg PO TID PRN (Reason: Pain) ibuprofen 600 mg tablet 600 mg PO TID PRN (Reason: pain) Qty: 20 0RF lisinopril [Zestril] 20 mg tablet 20 mg PO DAILY Qty: 30 0RF ibuprofen 800 mg tablet 800 mg PO TID PRN (Reason: pain) 7 Days Qty: 21 0RF Follow-up/Referrals: PHYSICIAN,CARDIOPULMONARY TECHNOLOGIST CHIEF [Primary Care Provider] - Time of Disposition: 10:41 Quality [place] Coma Scale Eyes: Open Verbal: Oriented and Alert Motor: Follows Commands [place] Coma Total Score: 15
[2024-07-29 10:30] LABS: EDINFLUASCREEN Negative (Negative); EDINFLUBSCREEN Negative (Negative)
== END 2024-07-29 10:44 | disposition home or self-care (01) ==
PROVIDERS: Emergency Provider Registered Nurse
DX: J44.1 Chronic obstructive pulmonary disease with (acute) exacerbation (principal); K21.9 Gastro-esophageal reflux disease without esophagitis; K50.90 Crohn's disease, unspecified, without complications; F17.210 Nicotine dependence, cigarettes, uncomplicated
CPT/HCPCS: 87804; 99213; G0463

== ENCOUNTER 2024-09-26 00:25 | Emergency (ER) | payer OTHER, SELFPAY ==
--- NOTE | ~2024-09-26 | CT_ITS ---
CT of the Abdomen and Pelvis: Indication: Abdominal pain Technique: 2.5 mm axial scans were obtained through the abdomen and pelvis following intravenous adm inistration of 100 cc of Omnipaque 350. Dose reduction technique was used on this scan by utilizing a utomated exposure control and iterative reconstruction technique. The dose-length product (DLP) was 1 690.66 mGy-cm. Findings: Scans through the lung bases are unremarkable. There is diffuse hepatic steatosis. Cholecystectomy clips are present. The spleen, pancreas, adrenals and kidneys are within normal limits. No evidence of aortic aneurysm. No lymphadenopathy. There are multiple minimally distended small bowel loops with decompressed distal small bowel. Findin gs could reflect early or partial small bowel obstruction. Images through the pelvis were performed. Urinary bladder unremarkable. Status post hysterectomy. No pelvic mass seen. No ascites. Impression: Possible early or partial small bowel obstruction, versus enterocolitis. Diffuse hepatic steatosis. Reviewed, dictated and finalized at [facility]. Impression: Possible early or partial small bowel obstruction, versus enterocolitis. Diffuse hepatic steatosis.
[2024-09-26 00:26] VITALS: BP 130/99; PULSE 114; RESP 20; TEMP 37; O2SAT 96
[2024-09-26 00:45] LABS: Basophils Absolute Auto 0.1 K/mm3 (0.0-0.1); Basophils Percent Auto 0.4 % (0.2-1.2); Eosinophils Absolute Auto 0.2 K/mm3 (0-0.3); Eosinophils Percent Auto 0.9 % (0-4.4); Hematocrit 45.5 % (37.0-47.0); Hemoglobin 14.7 g/dL (12.0-15.0); Immature Granulocyte Absolute 0.14 K/mm3 (0.00-0.031); Immature Granulocyte Percent A 0.7 % (0-0.5); Lymphocytes Percent Auto 34.1 % (18.3-44.2); Mean Corpuscular HGB Conc 32.3 g/dl (32-36); Mean Corpuscular Hemoglobin 28.9 pg (26-34); Mean Corpuscular Volume 89.6 fl (80-100); Mean Platelet Volume 10.2 fl (7.4-10.4); Monocytes Absolute Auto 0.9 K/mm3 (0.1-0.6); Monocytes Percent Auto 4.7 % (2.6-8.5); Neutrophils Absolute Auto 11.3 K/mm3 (1.3-6.7); Neutrophils Percent Auto 59.2 % (45.5-73.1); Platelet Count Result 361 k/mm3 (150-375); Red Blood Count 5.08 M/mm3 (4.2-5.4); Red Cell Distribution Width 15.3 % (11.5-14.5); White Blood Count 19.1 K/mm3 (4.5-10.0)
[2024-09-26 00:51] LABS: Alanine Aminotransferase 27 U/L (6-35); Albumin Level 4.8 g/dL (3.5-5.1); Alkaline Phosphatase 87 U/L (38-126); Anion Gap 17 mmol/L (4-12); Aspartate Amino Transferase 26 U/L (14-36); Bilirubin,Total 0.5 mg/dL (0.2-1.3); Blood Urea Nitrogen 18 mg/dL (7-17); Calcium 9.9 mg/dL (8.4-10.2); Carbon Dioxide 19 mmol/L (22-30); Chloride 105 mmol/L (98-107); Estimated CRCL calculation 88 ml/min; Estimated Glomerular Filt Rate 60; Glucose 218 mg/dL (65-110); Lipase 104 U/L (23-300); Potassium 3.8 mmol/L (3.4-5.0); Sodium 141 mmol/L (137-145)
[2024-09-26] MEDS: ONDANSETRON INJ 4 MG/2 ML VIAL IV PUSH (01:01)
[2024-09-26] MEDS: SODIUM CHLORIDE 0.9% IV 1,000 ML 999 ML IV CONT ×2 (01:01→05:15)
[2024-09-26] MEDS: HYDROmorphone HCL INJ (*CRX) 1 MG/ML SYR IV PUSH ×4 (01:01→05:15)
--- OUTSIDE RECORDS SUMMARY | 2024-09-26 01:38 | XMS_ITS | Referral Summary ---
Author Organization [facility] Address [address] [place] [address] Care Team Providers Care Degreasing Solution Reclaimer Name Role Phone No, Physician Primary Care Provider [phone] Allergies Active Allergy Reactions Criticality Noted Date Comments Pertussis Vaccines Other (See comments) Low 021 Medications multivitamin tablet daily Active albuterol HFA (PROVENTIL HFA,VENTOLIN HFA,PROAIR HFA) 90 mcg/actuation inhaler INHALE 2 PUFFS BY MOUTH EVERY 4 HOURS NEEDED 10/05/19 17 Active atorvastatin (LIPITOR) 10 mg tablet atorvastatin 10 mg tablet Active buPROPion SR (WELLBUTRIN SR) 100 mg 12 hr tablet bupropion HCl SR 100 mg tablet,12 hr sustained-release TAKE 1 TABLET BY MOUTH TWICE DAILY 03/13/20 20 Active calcium carbonate-vitamin D3 1500 mg (600 mg elemental) -200 units per tablet Calcium 600 + D(3) 600 mg (1,500 mg)-200 unit tablet TAKE 1 TABLET BY MOUTH TWICE DAILY Active cyclobenzaprine (FLEXERIL) 10 mg tablet cyclobenzaprine 10 mg tablet Active estradioL (ESTRACE) 0.5 mg tablet estradiol 0.5 mg tablet TAKE 1 TABLET BY MOUTH ONCE DAILY 10/05/19 17 Active furosemide (LASIX) 20 mg tablet furosemide 20 mg tablet TAKE 1 TABLET BY MOUTH ONCE DAILY Active HYDROcodone-aceta minophen (NORCO) 10-325 mg per tablet hydrocodone 10 mg-acetaminophen 325 mg tablet TAKE 1 TABLET BY MOUTH 4 TIMES DAILY Activ e ketorolac (TORADOL) 10 mg tablet ketorolac 10 mg tablet Active linaCLOtide (Linzess) 145 mcg capsule Linzess 145 mcg capsule TAKE 1 CAPSULE BY MOUTH DAILY 03/19/20 20 Active lisinopriL (PRINIVIL,ZESTRIL ) 20 mg tablet lisinopril 20 mg tablet Active omeprazole (PriLOSEC) 40 mg capsule Take by mouth 10/05/19 17 Active ondansetron ODT (ZOFRAN-ODT) 4 mg disintegrating tablet ondansetron 4 mg disintegrating tablet DISSOLVE 1 TABLET ON THE TONGUE FOUR TIMES DAILY NEEDED 02/10/20 18 Active psyllium (METAMUCIL) 3.4 gram packet Metamucil 3.4 gram/5.4 gram oral powder Week 1: Take 1 teaspoon mixed in water by mouth daily Week 2: Take 2 teaspoons mixed in water by mouth daily Week 3 and afterwards: Take 1 Tablespoon mixed in water by mouth daily 11/14/19 20 Active raNITIdine (ZANTAC) 300 mg tablet ranitidine 300 mg tablet 03/09/20 19 Active sertraline (ZOLOFT) 100 mg tablet sertraline 100 mg tablet Active sodium phosphates (FLEET) 19-7 gram/118 mL enema 133 mL 02/12/20 20 Active spironolactone (ALDACTONE) 25 mg tablet 01/16/20 21 Active sulfamethoxazole- trimethoprim (BACTRIM DS) 800-160 mg per tablet sulfamethoxazole 800 mg-trimethoprim 160 mg tablet Active venlafaxine XR (EFFEXOR-XR) 37.5 mg 24 hr capsule daily Act jeaneth gabapentin (NEURONTIN) 300 mg capsule Take 1 capsule (300 mg total) by mouth 3 (three) times a day 90 capsule 06/28/19 22 Active Active Problems Problem Noted Date Diagnosed Date COVID-19 06/28/2021 Assessment & Plan (06/28/2021 4:03 AM ELECTRONIC CALIBRATION TECHNICIAN): Per patient has been symptomatic with cough, pleuritic chest pain, fatigue since at least 06/18. Known sick contact of father. Once extubated 06/26 has been on room air. -COVID-19 (+) 06/25/21 -CT-C with c/f viral PNA, as well as aspiration PNA. -isolation per hospital proctocol with airborne and contact precautions. Pneumonia 06/28/2021 Assessment & Plan (06/28/2021 3:52 AM ELECTRONIC CALIBRATION TECHNICIAN): 06/25 CT-C with concerns for aspiration PNA +/- organizing PNA related to COVID-19 infection. Intubated for AMS, since extubation on room air. -continue antibiotics as elsewhere Sciatica 01/19/2021 Assessment & Plan (06/28/2021 3:51 AM ELECTRONIC CALIBRATION TECHNICIAN): Hx of sciatica for which she is prescribed: -flexeril 10mg TID PRN -gabapentin 800mg QID -Schlater 10-3215 BID PRN In setting of AMS/GABRIELLE dose reduced to -flexeril 5mg TID PRN -gabapentin 200mg TID -Schlater 10-325mg QID PRN Obesity 01/19/2021 Hypertensive disorder 01/19/2021 Assessment & Plan (06/28/2021 3:54 AM ELECTRONIC CALIBRATION TECHNICIAN): Home mediations: Furosemide 20mg QAM, lisinopril 20mg QAM, sprionolactone 25mg QAM all held since admission with shock, and subsequent normal blood pressure Hyperlipidemia 01/19/2021 Assessment & Plan (06/28/2021 3:54 AM ELECTRONIC CALIBRATION TECHNICIAN): Home prescription for atorvastatin 10mg, can be resumed on discharge Gastroesophageal reflux disease 01/19/2021 Assessment & Plan (06/28/2021 3:56 AM ELECTRONIC CALIBRATION TECHNICIAN): Holding home PPI, can resume on discharge Exposure to viral hepatitis 01/19/2021 Depressive disorder 01/19/2021 Anxiety 01/19/2021 Assessment & Plan (06/28/2021 4:05 AM ELECTRONIC CALIBRATION TECHNICIAN): Chart history of anxiety/depression. Patient is not sure if she is on medications currently. She has multiple diagnosis that would benefit from outpatient beharvioral therapy (IBS, chronic back pain) -started on sertaraline 25m QAM in ICU -started on seroquel 25mg QPM PRN in ICU Acute tonsillitis 01/19/2021 Assessment & Plan (01/19/2021 3:01 PM CDT): GERD with some dysphagia Acute sinusitis 01/19/2021 Abnormality of hormone 01/19/2021 Short leg syndrome, acquired 01/19/2021 Irritable bowel syndrome wit h both constipation and diarrhea 01/19/2021 Assessment & Plan (06/28/2021 3:53 AM ELECTRONIC CALIBRATION TECHNICIAN): Per chart review IBS (has seen GI previously) with GERD and abdominal pain Assessment & Plan (01/19/2021 2:55 PM CDT): Increase dietqry firbeto 3 fruits/d Dysphagia 01/19/2021 Overview (01/19/2021): Added automatically from request for surgery [id number] History of total hysterectomy 08/03/2020 Assessment & Plan (06/28/2021 3:56 AM ELECTRONIC CALIBRATION TECHNICIAN): Per patient due to endometriosis. States due to SE of hot flashes since she is on estradiol 0.5mg QAM, holding while inpateint. Diarrhea 07/16/2010 Constipation 07/16/2010 Resolved Problems Problem Noted Date Diagnosed Date Resolved Date Shock 06/28/2021 06/28/2021 Assessment & Plan (06/28/2021 3:47 AM ELECTRONIC CALIBRATION TECHNICIAN): Post intubation, the patient briefly required pressors. Resolved on 06/26. No pressor requirements for >1 day now. Likely related to intubation +/- infection (COVID/PNA) 06/25 blood cultures NGTD, 06/25 COVID-19 (+), CT-C with aspiration +/- COVID-19 PNA -s/p vancomycin (06/25), meropenem (06/25), CTX (06/25-06/27) -currently receiving azithromcyin (06/26-06/28) -amoxicillin 1g tid x5d (06/27-07/01) GABRIELLE (acute kidney injury) 06/28/2021 Assessment & Plan (06/28/2021 4:07 AM ELECTRONIC CALIBRATION TECHNICIAN): Cr 7.62 on arrival 06/25 in the setting of urinary retention (1.5L our immediately post-arias). Arias removed 06/26. Urinary retention likely related to medication side-effect. -Cr improved to 0.96 (06/27) RESOVLED Encephalopathy 06/25/2021 06/28/2021 Assessment & Plan (06/28/2021 4:01 AM ELECTRONIC CALIBRATION TECHNICIAN): Pt presented with fluctuating agitation and somnolence. Likely due to toxin/drug/medication effect in the setting of acute illness with COVID-19, GABRIELLE. Prescriptions for multiple sedating medications: Schlater 10-325mg BID PRN, gabapentin 800mg QID (3200mg/d), flexeril 10mg TID PRN. AMS resolved by 06/26. -06/25 CT-H NAICA, RPR neg, HIV neg -06/25 UDS (+) for oxycodone (not hydrocodone patient is prescribed), when asked patient states her is prescribed oxycodone and thinks she mixed them up -continue thiamine 100 daily Social History Tobacco Use Types Packs/Day Years Used Date Smoking Tobacco: Every Day Vaping Smokeless Tobacco: Current Comments No Sex and Gender Information Value Date Recorded Sex Assigned at Not on file Legal Sex Female 9:02 AM ELECTRONIC CALIBRATION TECHNICIAN Gender Identity Not on file Sexual Orientation Not on file Last Filed Vital Signs Vital Sign Reading Time Taken Comments Blood Pressure 136/67 06/28/2021 2:02 PM ELECTRONIC CALIBRATION TECHNICIAN Pulse 89 06/28/2021 2:02 PM ELECTRONIC CALIBRATION TECHNICIAN Temperature 36.5 C (97.7 F) 06/28/2021 2:02 PM ELECTRONIC CALIBRATION TECHNICIAN Respiratory Rate 18 06/28/2021 2:02 PM ELECTRONIC CALIBRATION TECHNICIAN Oxygen Saturation 99% 06/28/2021 2:02 PM ELECTRONIC CALIBRATION TECHNICIAN Inhaled Oxygen Concentration - - Weight 115.2 kg (253 lb 15.5 oz) 2021 11:40 PM ELECTRONIC CALIBRATION TECHNICIAN Height 177.8 cm (5' 10 ) 06/25/2021 11: 40 PM ELECTRONIC CALIBRATION TECHNICIAN Body Mass Index 36.44 06/25/2021 11:40 PM ELECTRONIC CALIBRATION TECHNICIAN Plan of Treatment Not on file Insurance Member Subscriber Plan / Payer (Ef fective 2020-Present) Name:Lexie Oconnell Relation to Subscriber:Self Name:Lexie Oconnell Payer ID:[id number] (NAIC) Group ID:Not on file Type:MEDICAID RISK OTHER Address: [address] [place], [place] [id number] [place] [address] Advance Directives For more information, please contact: [phone] * Full Code (Latest Code Status on File) Date Activated Date Inactivated Comments 06/25/2021 11:35 PM 06/28/2021 9:28 PM Care Teams Degreasing Solution Reclaimer Relationship Specialty Start Date End Date No, Physician PCP - General 06/28/21
--- OUTSIDE RECORDS SUMMARY | 2024-09-26 01:38 | XMS_ITS | Clinical Summary ---
Author Organization [facility] Building [facility] Address [address] [place] [address] Care Team Providers Care Acid Tender Name Role Phone No, Physician Primary Care Provider [phone] Allergies Active Allergy Reactions Criticality Noted Date [...] 06/28/2021 Assessment & Plan (06/28/2021 4:03 AM ROTO MIXER OPERATOR): Per patient has been symptomatic with cough, pleuritic chest pain, fatigue since at least 06/18. Known sick contact of father. Once extubated 06/26 has been on room air. -COVID-19 (+) 06/25/21 -CT-C with c/f viral PNA, as well as aspiration PNA. -isolation per hospital proctocol with airborne and contact precautions. Pneumonia 06/28/2021 Assessment & Plan (06/28/2021 3:52 AM ROTO MIXER OPERATOR): 06/25 CT-C with concerns for aspiration PNA +/- organizing PNA related to COVID-19 infection. Intubated for AMS, since extubation on room air. -continue antibiotics as elsewhere Sciatica 01/19/2021 Assessment & Plan (06/28/2021 3:51 AM ROTO MIXER OPERATOR): Hx of sciatica for which she is prescribed: -flexeril 10mg TID PRN -gabapentin 800mg QID -[place] 10-3215 BID PRN In setting of AMS/GABRIELLE dose reduced to -flexeril 5mg TID PRN -gabapentin 200mg TID -[place] 10-325mg QID PRN Obesity 01/19/2021 Hypertensive disorder 01/19/2021 Assessment & Plan (06/28/2021 3:54 AM ROTO MIXER OPERATOR): Home mediations: Furosemide 20mg QAM, lisinopril 20mg QAM, sprionolactone 25mg QAM all held since admission with shock, and subsequent normal blood pressure Hyperlipidemia 01/19/2021 Assessment & Plan (06/28/2021 3:54 AM ROTO MIXER OPERATOR): Home prescription for atorvastatin 10mg, can be resumed on discharge Gastroesophageal reflux disease 01/19/2021 Assessment & Plan (06/28/2021 3:56 AM ROTO MIXER OPERATOR): Holding home PPI, can resume on discharge Exposure to viral hepatitis 01/19/2021 Depressive disorder 01/19/2021 Anxiety 01/19/2021 Assessment & Plan (06/28/2021 4:05 AM ROTO MIXER OPERATOR): Chart history of anxiety/depression. Patient is not [...] 01/19/2021 Assessment & Plan (06/28/2021 3:53 AM ROTO MIXER OPERATOR): Per chart review IBS (has seen GI previously) with GERD and abdominal pain Assessment & Plan (01/19/2021 2:55 PM CDT): Increase dietqry firbeto 3 fruits/d Dysphagia 01/19/2021 Overview (01/19/2021): Added automatically from request for surgery [id number] History of total hysterectomy 08/03/2020 Assessment & Plan (06/28/2021 3:56 AM ROTO MIXER OPERATOR): Per patient due to endometriosis. States due to SE of hot flashes since she is on estradiol 0.5mg QAM, holding while inpateint. Diarrhea 07/16/2010 Constipation 07/16/2010 Resolved Problems Problem Noted Date Diagnosed Date Resolved Date Shock 06/28/2021 06/28/2021 Assessment & Plan (06/28/2021 3:47 AM ROTO MIXER OPERATOR): Post intubation, the patient briefly required pressors. [...] 06/28/2021 Assessment & Plan (06/28/2021 4:07 AM ROTO MIXER OPERATOR): Cr 7.62 on arrival 06/25 in the setting of urinary retention (1.5L our immediately post-arias). Arias removed 06/26. Urinary retention likely related to medication side-effect. -Cr improved to 0.96 (06/27) RESOVLED Encephalopathy 06/25/2021 06/28/2021 Assessment & Plan (06/28/2021 4:01 AM ROTO MIXER OPERATOR): Pt presented with fluctuating agitation and somnolence. Likely due to toxin/drug/medication effect in the setting of acute illness with COVID-19, GABRIELLE. Prescriptions for multiple sedating medications: [place]queron 10-325mg BID PRN, gabapentin 800mg QID (3200mg/d), [...] on file Legal Sex Female 9:02 AM ROTO MIXER OPERATOR Gender Identity Not on file Sexual Orientation Not on file Obstetrics History Last Filed Vital Signs Vital Sign Reading Time Taken Comments Blood Pressure 136/67 06/28/2021 2:02 PM ROTO MIXER OPERATOR Pulse 89 06/28/2021 2:02 PM ROTO MIXER OPERATOR Temperature 36.5 C (97.7 F) 06/28/2021 2:02 PM ROTO MIXER OPERATOR Respiratory Rate 18 06/28/2021 2:02 PM ROTO MIXER OPERATOR Oxygen Saturation 99% 06/28/2021 2:02 PM ROTO MIXER OPERATOR Inhaled Oxygen Concentration - - Weight 115.2 kg (253 lb 15.5 oz) 2021 11:40 PM ROTO MIXER OPERATOR Height 177.8 cm (5' 10 ) 06/25/2021 11: 40 PM ROTO MIXER OPERATOR Body Mass Index 36.44 06/25/2021 11:40 PM ROTO MIXER OPERATOR Plan of Treatment Not on file Insurance Member Subscriber Plan / Payer ( fective 2020-Present) Name:Lexie Oconnell Relation to Subscriber:Self Name:Lexie Oconnell Payer ID:[id number] (NAIC) Group ID:Not on file Type:MEDICAID RISK OTHER Address: [address] [place], [place] [phone] [place] [address] Advance Directives For more information, please contact: [phone] * Full Code (Latest Code Status on File) Date Activated Date Inactivated Comments 06/25/2021 11:35 PM 06/28/2021 9:28 PM Care Teams Acid Tender Relationship Specialty Start Date End Date No, Physician PCP - General 06/28/21
--- OUTSIDE RECORDS SUMMARY | 2024-09-26 01:38 | XMS_ITS | CONTINUITY OF CARE DOCUMENT ---
Author Name enma ceemay Address Unknown Organization [facility] Address [address] [place] [address] Phone [phone] Care Team Providers Care Drum Sealer Name Role Phone Arie GUEVARA, Felicita Unavailable RADHA NOEL Unavailable [phone] RADHA NOEL Unavailable PROBLEMS Condition Status Date Provider Notes Chest pain active Felicita Sargent MD Family History of Hypertension: active ? Gage Sargent MD Palpitations active Felicita Sargent MD HTN essential during pregnan cy and then later , now bp is normal active Felicita Sargent MD ENCOUNTERS Date Type Provider Location Encounter Diag nosis - In-person encounter Office Visit Felicita Sargent MD [facility] Chest painFamily History of Hypertension:Palpit ationsHTN essential during and then later , now bp is normal VITAL SIGNS Date Observation Value Provider Body Mass Index (Ratio) 36.94 kg/m2 Gage Sargent MD blood pressure, cuff size large Migdalia Saez blood pressure, diastolic 80 mm[Hg] Migdalia Saez blood pressure, systolic 110 mm[Hg] Rodolfo Saez oxygen saturation, oximetry 98 % Jyothi Saez respiratory rate E&M 16 /min Jyothi Saez weight E&M 243 [lb_av] Jyothi Saez pulse rate 83 /min Jyothi Saez height E&M 68 [in_i] Jyothi Saez ALLERGIES No Known Drug Allergies HISTORY OF MEDICATION USE Medication Status Instructions Dates Provider Indications Com ments VENTOLIN HFA 108 (90 Base) MCG/ACT INHALATION AEROSOL SOLUTION active take 2 puffy as needed Jyothi Saez OMEPRAZOLE 40 MG ORAL CAPSULE DELAYED RELEASE active take once a day Jyothi Saez PX RANITIDINE 150 MG ORAL TABS (RANITIDINE HCL) active take twice a day Jyothi Saez NORTHERA CAPSULE active Jyothi Saez ESTRADIOL 0.5 MG ORAL TABLET active take once a day Jyothi Saez SOCIAL HISTORY Date Observation Value Provider social history reviewed E&M revi ewed - no changes required Felicita Sargent MD smoking history, tot al pack/day 10 cigarettes Jyothi Saez cigarette use yes Jyothi Saez smoking status Current every day smoker L francisco javier Saez FAMILY HISTORY Family Member Condition Father Family History of Hy pertension: Mother Family History of Hy pertension: Mother Family History of Di abetes: INSURANCE PROVIDERS Payer name Policy type / Coverage type [facility] party ID [id number] MEDICAID (2) Medicaid [id number] ADVANCE DIRECTIVES Name Date DISCUSSED - NO DECISION MADE TREATMENT PLAN Date Name Performer Cardiology New Patient Felicita murillo MD Cardiology New Patient Felicita murillo MD Cardiology New Patient Felicita murillo MD HISTORY OF PROCEDURES Procedure Date Procedure Name Provider Procedure Notes S tatus EKG Felicita Sargent MD completed SNOMED-CT: [id number] Current Medications Documented Felicita Sargent MD completed
--- OUTSIDE RECORDS SUMMARY | 2024-09-26 01:38 | XMS_ITS | Data Portability ---
Author Organization [facility] LUZ MARIAImelda Address [address] [facility] [place] [address] Care Team Providers Care Senior Director Marketing Name Role Phone BOB PLAZA Primary Care Provider Assessment No assessment recorded. Plan of Treatment Reminders Order Date Submit Date Provider Last Modified By Organization Details Last Modified Time Details Appointments ANY 15 2024 11:30A M Bob Plaza MD Not available Not available Not available Lab CMP, serum or plasma 2023 024 [facility], [address] [place] [address], [address], [place], [address], 01/10/2024 08:28:12 lipid panel, serum 2023 024 [facility], [address] [place] [address], [address], [place], [address], 01/10/2024 08:28:11 CBC 2023 024 [facility], [address] [place] [address], [address], [place], [address], 01/10/2024 08:28:12 TSH, ultra-s ensitiv e, serum 2023 024 [facility], [address] [place] [address], [address], [place], [address], 01/10/2024 09:15:55 vitamin D, 25-hydr oxy, total, serum 2023 024 [facility], [address] [facility], [address], [place], [address], 01/10/2024 09:15:56 HbA1c (hemogl obin A1c), blood 2022 023 [email or web address] In-Office Order, Internal Use Only DO Not Attach Compendium DO Not Attach Compendium, Do Not Delete/merge, [id number] 02/06/2023 15:29:06 Referral None recorde d. Procedures None recorde d. Surgeries None recorde d. Imaging US, neck - Mass base of neck 2022 023 [facility] ([facility]), [address] [place] [address], [address], 03/09/2023 17:39:39 Medication Orders gabapen tin 800 mg tablet 2024 025 [facility], [address] [place], [address], 07/10/2024 18:00:22 pantopr azole 40 mg tablet, delayed release 2024 025 [facility], [address] [place], [address], 07/10/2024 18:00:24 lisinop ril 10 mg tablet 2023 024 [facility], [address] [place], [address], 01/10/2024 07:44:49 Symbico rt 160 mcg-4.5 mcg/act uation HFA aerosol inhaler 2023 024 [facility], [address] [place], [address], 01/10/2024 07:44:49 atorvas tatin 10 mg tablet 2023 024 [facility], [address] [facility], [place], [address], 01/14/2024 20:25:56 cyclobe nzaprin e 10 mg tablet 2023 024 [facility], [address] [facility], [place], [address], 01/09/2024 12:59:48 tramado l 50 mg tablet [address] [facility] [facility], [place], [address], 01/10/2024 07:36:35 gabapen tin 800 mg tablet 2023 024 [facility], [address] [facility], [place], [address], 01/10/2024 07:44:50 omepraz ole 40 mg capsule ,delaye d release 2023 024 [facility], [address] [facility], [place], [address], 01/10/2024 07:44:49 furosem alvina 20 mg tablet 2023 024 [facility], [address] [place], [address], 01/10/2024 07:44:48 duloxet ine 60 mg capsule ,delaye d release 2023 024 [facility], [address] [place], [address], 01/10/2024 07:44:52 omepraz ole 40 mg capsule ,delaye d release 2022 023 [facility], [address] [place], [address], 05/15/2023 15:27:13 meloxic am 7.5 mg tablet 2022 [facility]23 [email or web address] [address] [email or web address] [facility], [place], [address], 07/10/2024 17:33:02 furosem alvina 20 mg tablet 2022 023 [facility], [address] [email or web address] [facility], [place], [address], 02/06/2023 15:21:19 gabapen tin 800 mg tablet 2022 023 [facility], [address] [email or web address], [address], 02/06/2023 15:21:20 tramado l 50 mg tablet 2022 023 [facility], [address] [email or web address], [address], 02/06/2023 15:21:22 Patient TargetsNo targets recorded. Patient Instructions Encounter Date Encounter Id Patient Instructions Last Modified By Organization Details Last Modified Time 02/06/2023 [id number] learning about h igh blood sugar [email or web address] Not available 02/06/2023 15:29:06 A healthy lifest yle: care instructions Not available 02/06/2023 15:21:12 05/15/2023 [id number] gastroesophageal reflux disease (GERD): care instructions Not available 05/15/2023 15:27:07 When You Want to Lose Weight: Care Instructions [email or web address] Not available 05/15/2023 15:20:32 A healthy lifest yle: care instructions [email or web address] Not available 05/15/2023 15:20:32 07/24/2023 [id number] learning about h igh blood sugar [email or web address] Not available 07/24/2023 15:45:11 gastroesophageal reflux disease (GERD): care instructions [email or web address] Not available 07/24/2023 15:45:11 A healthy lifest yle: care instructions [email or web address] Not available 07/24/2023 15:45:11 high cholesterol : care instructions [email or web address] Not available 07/24/2023 15:45:11 01/09/2024 [id number] When You Want to Lose Weight: Care Instructions [email or web address] Not available 01/10/2024 07:44:39 A healthy lifest yle: care instructions Not available 01/10/2024 07:44:39 07/10/2024 [id number] gastroesophageal reflux disease (GERD): care instructions [email or web address] Not available 07/10/2024 18:00:18 Reason for Referral None Reported. Results Created Date Observation Date Name Description Value Unit Range Abnormal Flag Note LastModifiedBy Organization Detail LastModifiedTime 02/07/2002/06/2023 HbA1c (hemo globi n A1c), blood HbA1c 6.1 Not Available In-Office Order Internal Use Only DO Not Attach Compendium DO Not Attach Compendium, Do Not Delete/merge, [id number] 02/06/2023 15:28:55 10/06/19 24 10/16/2023 COMPL IANCE DRUG RENATA SIS, UR summary report (summary) FINAL ===== ===== ===== ===== ===== ===== ===== ===== ===== ===== ===== ===== ===== === TOXAS SURE COMP DRUG RENATA SIS,U R ===== ===== ===== ===== ===== ===== ===== ===== ===== ===== ===== ===== ===== === Test Resul t Flag Units Drug Prese nt Carbo xy-TH C >3448 ng/mg creat Carbo xy-TH C is a metab olite of tetra hydro canna binol (THC) . Sourc e of THC is most commo nly herba l marij uana or marij uana- based produ cts, but THC is also prese nt in a sched uled presc ripti on medic ation . Trace amoun ts of THC can be prese nt in hemp and canna bidio l (CBD) produ cts. This test is not inten ded to disti nguis h betwe en delta -9-te trahy droca nnabi nol, the predo minan t form of THC in most herba l or marij uana- based produ cts, and delta -8-te trahy droca nnabi nol. Trama dol 810 ng/mg creat O-Mark methy ltram adol 7003 ng/mg creat N-Mark methy ltram adol 859 ng/mg creat Sourc e of trama dol is a presc ripti on medic ation . O-mark methy ltram adol and N-mark methy ltram adol are expec gina metab olite s of trama dol. Gabap entin PRESE NT Cyclo benza mikhail PRESE NT Ibupr ofen PRESE NT ===== ===== ===== ===== ===== ===== ===== ===== ===== ===== ===== ===== ===== === Test Resul t Flag Units Ref Range Creat inine 29 mg/dL >=20 ===== ===== ===== ===== ===== ===== ===== ===== ===== ===== ===== ===== ===== === Decla red Medic ation s: Medic ation list was not provi ded. ===== ===== ===== ===== ===== ===== ===== ===== ===== ===== ===== ===== ===== === For clini vishal consu ltati on, pleas e call . ===== ===== ===== ===== ===== ===== ===== ===== ===== ===== ===== ===== ===== === Not Available [facility] ([facility]) [address] [facility] [place], [address], 10/16/2023 17:08:39 10/06/19 24 10/16/2023 COMPL LAURA DRUG RENATA SIS, UR pdf . Not Available [facility] ([facility]) [address] [facility] [place], [address], 10/16/2023 17:08:39 01/09/20 24 01/10/2024 LIPID PANEL cholesterol, total 176 mg/dL 100-19 9 Not Available [facility] ([facility]) [address] [facility] [place], [address], 01/10/2024 08:28:11 01/09/20 24 01/10/2024 LIPID PANEL triglyceride s 323 mg/dL 0-149 above high normal Not Available [facility] ([facility]) [address] [facility] [place], [address], 01/10/2024 08:28:11 01/09/20 24 01/10/2024 LIPID PANEL HDL cholesterol 37 mg/dL >39 below low normal Not Available [facility] ([facility]) [address] [facility] [place], [address], 01/10/2024 08:28:11 01/09/20 24 01/10/2024 LIPID PANEL VLDL cholesterol vishal 53 mg/dL 5-40 above high normal Not Available [facility] ([facility]) [address] [place], [address], 01/10/2024 08:28:11 01/09/20 24 01/10/2024 LIPID PANEL LDL chol calc ([facility]) 86 mg/dL 0-99 Not Available [facility] ([facility]) [address] [place], [address], 01/10/2024 08:28:11 01/09/20 24 01/10/2024 COMP. METAB OLIC PANEL (14) glucose 118 mg/dL 70-99 above high normal Not Available [facility] ([facility]) [address] [place], [address], 01/10/2024 08:28:11 01/09/20 24 01/10/2024 COMP. METAB OLIC PANEL (14) BUN 14 mg/dL 6-24 Not Available [facility] ([facility]) [address] [place], [address], 01/10/2024 08:28:11 01/09/20 24 01/10/2024 COMP. METAB OLIC PANEL (14) creatinine 0.88 mg/dL 0.57-1 .00 Not Available [facility] ([facility]) [address] [place], [address], 01/10/2024 08:28:11 01/09/20 24 01/10/2024 COMP. METAB OLIC PANEL (14) eGFR 84 mL/mi n/1.7 3 >59 Not Available [facility] ([facility]) [address] [place], [address], 01/10/2024 08:28:11 01/09/20 24 01/10/2024 COMP. METAB OLIC PANEL (14) BUN/creatini ne ratio 16 9-23 Not Available [facility] ([facility]) [address] [place], [address], 01/10/2024 08:28:11 01/09/20 24 01/10/2024 COMP. METAB OLIC PANEL (14) sodium 143 mmol/ L 134-14 4 Not Available [facility] ([facility]) [address] [place], [address], 01/10/2024 08:28:11 01/09/20 24 01/10/2024 COMP. METAB OLIC PANEL (14) potassium 4.5 mmol/ L 3.5-5. 2 Not Available [facility] ([facility]) [address] [place], [address], 01/10/2024 08:28:11 01/09/20 24 01/10/2024 COMP. METAB OLIC PANEL (14) chloride 103 mmol/ L 96-106 Not Available [facility] ([facility]) [address] [facility], [place], [address], 01/10/2024 08:28:11 01/09/20 24 01/10/2024 COMP. METAB OLIC PANEL (14) carbon dioxide, total 21 mmol/ L 20-29 Not Available [facility] ([facility]) [address] [facility], [place], [address], 01/10/2024 08:28:11 01/09/20 24 01/10/2024 COMP. METAB OLIC PANEL (14) calcium 10.0 mg/dL 8.7-10 .2 Not Available [facility] ([facility]) [address] [facility], [place], [address], 01/10/2024 08:28:11 01/09/20 24 01/10/2024 COMP. METAB OLIC PANEL (14) protein, total 7.8 g/dL 6.0-8. 5 Not Available [facility] ([facility]) [address] [facility], [place], [address], 01/10/2024 08:28:11 01/09/20 24 01/10/2024 COMP. METAB OLIC PANEL (14) albumin 4.5 g/dL 3.9-4. 9 Not Available [facility] ([facility]) [address] [facility] [place], [address], 01/10/2024 08:28:11 01/09/20 24 01/10/2024 COMP. METAB OLIC PANEL (14) globulin, total 3.3 g/dL 1.5-4. 5 Not Available [facility] ([facility]) [address] [facility] [place], [address], 01/10/2024 08:28:11 01/09/20 24 01/10/2024 COMP. METAB OLIC PANEL (14) bilirubin, total 0.3 mg/dL 0.0-1. 2 Not Available [facility] ([facility]) [address] [facility], [place], [address], 01/10/2024 08:28:11 01/09/20 24 01/10/2024 COMP. METAB OLIC PANEL (14) alkaline phosphatase 82 IU/L 44-121 Not Available [facility] ([facility]) [address] [facility], [place], [address], 01/10/2024 08:28:11 01/09/2001/10/2024 COMP. METAB OLIC PANEL (14) AST (SGOT) 16 IU/L 0-40 Not Available [facility] ([facility]) [address] [facility], [place], [address], 01/10/2024 08:28:11 01/09/20 24 01/10/2024 COMP. METAB OLIC PANEL (14) ALT (SGPT) 17 IU/L 0-32 Not Available [facility] ([facility]) [address] [facility], [place], [address], 01/10/2024 08:28:11 01/09/20 24 01/10/2024 CBC, PLATE LET, NO DIFFE RENTI AL WBC 10.2 x10e3 /uL 3.4-10 .8 Not Available [facility] ([facility]) [address] [facility], [place], [address], 01/10/2024 08:28:12 01/09/20 24 01/10/2024 CBC, PLATE LET, NO DIFFE RENTI AL RBC 5.24 x10e6 /uL 3.77-5 .28 Not Available [facility] ([facility]) [address] [facility], [place], [address], 01/10/2024 08:28:12 01/09/2001/10/2024 CBC, PLATE LET, NO DIFFE RENTI AL hemoglobin 15.4 g/dL 11.1-1 5.9 Not Available [facility] ([facility]) [address] [place], [address], 01/10/2024 08:28:12 01/09/2001/10/2024 CBC, PLATE LET, NO DIFFE RENTI AL hematocrit 44.7 % 34.0-4 6.6 Not Available [facility] ([facility]) [address] [facility], [place], [address], 01/10/2024 08:28:12 01/09/2001/10/2024 CBC, PLATE LET, NO DIFFE RENTI AL MCV 85 fL 79-97 Not Available [facility] ([facility]) [address] [facility], [place], [address], 01/10/2024 08:28:12 01/09/2001/10/2024 CBC, PLATE LET, NO DIFFE RENTI AL MCH 29.4 pg 26.6-3 3.0 Not Available [facility] ([facility]) [address] [facility], [place], [address], 01/10/2024 08:28:12 01/09/2001/10/2024 CBC, PLATE LET, NO DIFFE RENTI AL MCHC 34.5 g/dL 31.5-3 5.7 Not Available [facility] ([facility]) [address] [facility], [place], [address], 01/10/2024 08:28:12 01/09/2001/10/2024 CBC, PLATE LET, NO DIFFE RENTI AL RDW 13.5 % 11.7-1 5.4 Not Available [facility] ([facility]) [address] [place], [address], 01/10/2024 08:28:12 01/09/2001/10/2024 CBC, PLATE LET, NO DIFFE RENTI AL platelets 306 x10e3 /uL 150-45 0 Not Available [facility] ([facility]) [address] [facility], [place], [address], 01/10/2024 08:28:12 01/09/20 24 01/10/2024 TSH RFX ON ABNOR MAL TO FREE T4 TSH 0.740 uIU/m L 0.450- 4.500 Not Available [facility] ([facility]) [address] [facility], [place], [address], 01/10/2024 09:15:55 01/09/2001/10/2024 VITAM IN D, 25-HY DROXY vitamin D, 25-hydroxy 21.4 NG/mL 30.0-1 00.0 below low normal Vitam in D defic iency has been defin ed by the Insti tute of Medic ine and an Endoc rine Socie ty pract ice guide line as a level of serum 25-OH vitam in D less than 20 ng/mL (1,2) . The Endoc rine Socie ty went on to furth er defin e vitam in D insuf ficie ncy as a level betwe en 21 and 29 ng/mL (2). 1. IOM (Inst itute of Medic ine). 2009. Dieta ry refer ence intak es for calci um and D. Sean taylor [place]: [facility] . 2. Uzma chou [place], Jay jennings [place], Billy off-F errar i JOHNSON, et al. Evalu ation , treat ment, and preve ntion of vitam in D defic iency : an Endoc rine Socie ty clini vishal pract ice guide line. JCEM. 2010; 96(7) :1911 -30. Not Available [facility] ([facility]) [address] [facility], [place], [address], 01/10/2024 09:15:56 Result Notes None recorded. Problems Name Problem SNOMED Code Status Onset Date Resolution Date Notes Provider Name and Address Organization Details Recorded Time Estephaniain g mammogra phy Completed 201808/04/2020 Bob Plaza MD Attn: Accounting ,[address] [facility], [place], [address] , [facility] 2 17:18:57 Hysterec marcia Active 2019 Not Available [facility] 4 14:28:54 History of total hysterec marcia 281195601 Active 2020 Not Available [facility] 4 14:28:54 Chronic pelvic pain of female 954407407 Active 2021 Not Available [facility] 4 14:28:54 Interver tebral disc prolapse 52014800 Active 2021 Not Available [facility] 4 14:28:54 Pain of left ankle joint 58210169504 752387 Active 2021 Not Available [facility] 4 14:28:54 Subcutan eous nodule 35907990 Active 2021 20 cms Not Available [facility] 4 14:28:55 Disorder of skin 00394771 Active 2021 Not Available [facility] 4 14:28:55 Epistaxi s Active Not Available [facility] 4 14:28:54 Screenin g mammogra phy Active Not Available [facility] 4 14:28:54 Dyspnea 915809917 Active Not Available [facility] 4 14:28:54 Cough 05256818 Active Not Available [facility] 4 14:28:54 Palpitat ions 31382557 Active Not Available [facility] 4 14:28:54 Skin lesion 34544548 Active 2021 Not Available [facility] 4 14:28:55 Abnormal weight gain 220822157 Active 2021 Not Available [facility] 4 14:28:54 Pain of right shoulder joint 16244094621 746645 Active 2022 Not Available [facility] 4 14:28:54 Neck pain 44911493 Active 2022 Not Available [facility] 4 14:28:54 Mass of neck 765484010 Active 2022 Not Available [facility] 4 14:28:54 Chronic low back pain 859340913 Active 2022 Not Available [facility] 4 14:28:54 Low back pain 393257798 Active 2022 Not Available [facility] 4 14:28:54 Hypergly cemia 93044814 Active 2022 Not Available [facility] 4 14:28:54 Morbid obesity 766895336 Active 2022 Not Available [facility] 4 14:28:54 Medicati on monitori ng Active 2022 Not Available [facility] 4 14:28:54 Multiple joint pain 48704770 Active 2022 Not Available [facility] 4 14:28:54 Active immuniza tion Active 2022 Not Available [facility] 4 14:28:54 Vitamin D deficien cy 89783593 Active 2023 Bob Plaza MD Attn: [place], [address] , [facility] 4 20:31:03 Hyperlip idemia 22113126 Active Not Available [facility] 4 14:28:54 Acute sinusiti s 30971498 Active Not Available [facility] 4 14:28:54 Acute tonsilli tis 68509124 Active Not Available [facility] 4 14:28:54 Hyperten sive disorder 30196376 Active Not Available [facility] 4 14:28:54 Depressi ve disorder 85600047 Active Not Available [facility] 4 14:28:54 Exposure to viral hepatiti s Active Serum testing negative Not Available [facility] 4 14:28:54 Anxiety 96186489 Active Not Available [facility] 4 14:28:54 Abdomina l pain 84460851 Active Not Available [facility] 4 14:28:54 Obesity 532220458 Active Not Available [facility] 4 14:28:54 Short leg 558717599 Active Not Available [facility] 4 14:28:54 Hormone abnormal ity 20374121 Active Not Available [facility] 4 14:28:54 Sciatica 30556512 Active Not Available [facility] 4 14:28:54 Tobacco dependen ce syndrome 42807440 Active Not Available [facility] 4 14:28:54 Dyspnea 815759639 Completed 201608/04/2020 Bob Plaza MD Attn: Accounting ,[address] [place], [place], [address] [place] [address] , [facility] 2 17:18:57 Cough 42520081 Completed 08/04/2020 Bob Plaza MD Attn: Accounting ,[address] [place], [place], [address] [place] [address] , [facility] 2 17:18:57 Gastroes ophageal reflux disease 486768701 Active Not Available [facility] 4 14:28:54 Epistaxi s Completed 08/04/2020 Bob Plaza MD Attn: Accounting ,[address] [place], [place], [address] [place] [address] , [facility] 2 17:18:57 Palpitat ions 23480693 Completed 201608/04/2020 Bob Plaza MD Attn: Accounting ,[address] [place], [address] [place] [address] , [facility] 2 17:18:57 Problem Notes None recorded. Procedures Surgical History Date Name Laterality Status Provider Name and Address Organization Details Recorded Time 11/20/19 21 Date of Last Mammogram completed Hillary Elliott [place] - [facility] 01/25/2022 12:12:50 03/15/20 14 Date of Last Pap Smear completed BULMARO Loja [facility] 08/02/2019 15:26:15 03/15/20 14 Total hysterectomy completed Sheri Dior MA [facility] 01/21/2020 14:05:38 06/19/19 07 Cholecystectomy completed Tianna Baez MA [place] [facility] 10/11/2017 16:47:10 06/19/18 96 Orthopedic Surgery completed Tianna Baez MA [facility] 10/11/2017 16:46:55 colonoscopy completed Gustavo Gusman MA [place] [facility] 08/26/2021 14:23:01 Imaging Results None recorded. Procedure Notes None recorded. Medical Equipment None Reported. Allergies Allergen ID Allergen Name Allergen Category Reaction Reaction Severity Criticality Documentation Date Start Date Code Code System Note Provider Name and Address Organization Details Recorded Time 718250 pertussis vaccine medicatio n Not available Not available Not available 08/02/2019 8080 RxNorm When she was a child Not Available Not Available Not Available Medications Name Sig Start Date Stop Date Status Note LastModified by Organization Details LastModified Time Prescript ion - Prior Authoriza tion Request 01/08 completed Not Available Not Available Not Available multivita min tablet Take 1 tablet every day by oral route. 08/26 completed Not Available Not Available Not Available cyclobenz aprine 10 mg tablet TAKE 1 TABLET BY MOUTH THREE TIMES DAILY 2024 active Not Available Not Available Not Avai lable amoxicill in 500 mg capsule 08/26 completed Not Available Not Available Not Available atorvasta tin 40 mg tablet TAKE 1 TABLET BY MOUTH ONCE DAILY IN THE EVENING 2024 active Not Available Not Available Not Avai lable methocarb cristina 500 mg tablet 01/08 completed Not Available Not Available Not Available promethaz ine-DM 6.25 mg-15 mg/5 mL oral syrup TAKE 5 ML BY MOUTH EVERY 4 TO 6 HOURS NEEDED FOR COUGH 01/08 completed Not Available Not Available Not Available venlafaxi ne ER 37.5 mg capsule,e xtended release 24 hr Take 1 capsule every day by oral route. active Not Available Not Available No t Available prednison e 10 mg tablet take 6 in the morning with food in your stomach for 2 days, then 5,5,4,4, 3,3,2,2, 1, and 1 over the next ten days. 08/02 completed Not Available Not Available Not Available venlafaxi ne ER 75 mg capsule,e xtended release 24 hr Take 1 capsule every day by oral route. 2014 active Not Available Not Available Not Avai lable gabapenti n 600 mg tablet Take 1 tablet(s ) 3 times a day by oral route. 11/13 completed Not Available Not Available Not Available nicotine 14 mg/24 hr daily transderm al patch Apply 1 patch every day by transder mal route as directed . 01/08 completed Not Available Not Available Not Available tizanidin e 2 mg tablet 07/27 completed Not Available Not Available Not Available clindamyc in HCl 300 mg capsule Take 1 capsule 3 times a day by oral route with meals. 08/02 completed Not Available Not Available Not Available atorvasta tin 10 mg tablet TAKE 1 TABLET BY MOUTH ONCE DAILY AT BEDTIME 01/13 completed Not Available Not Available Not Available azithromy goran 250 mg tablet TAKE 2 TABLETS BY MOUTH ON DAY 1, AND THEN TAKE 1 TABLET BY MOUTH ONCE A DAY ON DAY 2 THROUGH DAY 5 active Not Available Not Available No t Available ibuprofen 800 mg tablet TAKE 1 TABLET BY MOUTH THREE TIMES DAILY NEEDED FOR PAIN FOR 7 DAYS 02/06 completed Not Available Not Available Not Available sulfameth oxazole 400 mg-trimet hoprim 80 mg tablet 10/11 completed Not Available Not Available Not Available ranitidin e 300 mg tablet Take 1 tablet every day by oral route at bedtime. 08/02 completed Not Available Not Available Not Available hydrocodo ne 5 mg-acetam inophen 325 mg tablet TAKE 1 TABLET BY MOUTH EVERY 6 HOURS 12/24 completed Not Available Not Available Not Available meloxicam 15 mg tablet TAKE 1 TABLET BY MOUTH DAILY FOR PAIN 08/04 completed Not Available Not Available Not Available lisinopri l 20 mg tablet TAKE 1 TABLET BY MOUTH ONCE DAILY (APPOINT MENT REQUIRED FOR FUTURE REFILLS) 01/25 completed Not Available Not Available Not Available ondansetr on HCl 4 mg tablet TAKE 1 TABLET BY MOUTH EVERY 8 HOURS 01/08 completed Not Available Not Available Not Available famotidin e 40 mg tablet TAKE 1 TABLET BY MOUTH ONCE DAILY IN THE EVENING active Not Available Not Available No t Available prednison e 20 mg tablet TAKE 1 TABLET BY MOUTH TWICE DAILY active Not Available Not Available No t Available gabapenti n 400 mg capsule Take 1 capsule 3 times a day by oral route. 07/27 completed Not Available Not Available Not Available sertralin e 100 mg tablet Take 2 tablets every day by oral route. 08/26 completed Not Available Not Available Not Available acetamino phen 300 mg-codein e 30 mg tablet Take 1 tablet every 6 hours by oral route. 06/24 completed Not Available Not Available Not Available ciproflox acin 500 mg tablet Take 1 tablet every 12 hours by oral route. 08/04 completed Not Available Not Available Not Available sulfameth oxazole 800 mg-trimet hoprim 160 mg tablet active Not Available Not Available Not Available hydrocodo ne 10 mg-acetam inophen 325 mg tablet Take 1 tablet 4 times a day by oral route as needed. 10/29 completed Not Available Not Available Not Available omeprazol e 40 mg capsule,d elayed release TAKE 1 CAPSULE BY MOUTH ONCE DAILY active Not Available Not Available No t Available doxycycli ne monohydra te 100 mg tablet TAKE 1 TABLET BY MOUTH TWICE DAILY 10/10 completed Not Available Not Available Not Available tramadol 50 mg tablet TAKE 2 TABLETS BY MOUTH THREE TIMES DAILY NEEDED MUST LAST 30 DAYS active Not Available Not Available No t Available spironola ctone 25 mg tablet Take 1 tablet by mouth once daily 01/08 completed Not Available Not Available Not Available bupropion HCl SR 100 mg tablet,12 hr sustained -release TAKE 1 TABLET BY MOUTH TWICE DAILY 08/26 completed Not Available Not Available Not Available ketorolac 10 mg tablet active Not Available Not Available Not Available meloxicam 7.5 mg tablet TAKE 1 TABLET BY MOUTH ONCE DAILY NEEDED 07/10 completed Not Available Not Available Not Available bupropion HCl 100 mg tablet Take 1 tablet twice a day by oral route. 11/13 completed patient states she is no longer taking Not Available Not Available Not Available amoxicill in 875 mg tablet TAKE 1 TABLET BY MOUTH EVERY 12 HOURS FOR 10 DAYS 01/08 completed Not Available Not Available Not Available Fleet Enema 19 gram-7 gram/118 mL Insert 133 mL by rectal route as needed. 08/26 completed Not Available Not Available Not Available famotidin e 20 mg tablet Take 1 tablet twice a day by oral route. 08/02 completed Not Available Not Available Not Available methocarb cristina 750 mg tablet TAKE 2 TABLETS BY MOUTH THREE TIMES DAILY 01/08 completed Not Available Not Available Not Available gabapenti n 800 mg tablet TAKE 1 TABLET BY MOUTH 4 TIMES DAILY FOR PAIN 2024 active Not Available Not Available Not Avai lable dicyclomi ne 20 mg tablet TAKE 1 TABLET BY MOUTH THREE TIMES DAILY 01/08 completed Not Available Not Available Not Available doxycycli ne monohydra te 100 mg capsule 08/26 completed Not Available Not Available Not Available hydrocodo ne 7.5 mg-acetam inophen 325 mg tablet Take 1 tablet every 6 hours by oral route. 11/13 completed Not Available Not Available Not Available pantopraz ole 40 mg tablet,de layed release TAKE 1 TABLET BY MOUTH ONCE DAILY BEFORE MEAL(S) active Not Available Not Available No t Available ranitidin e 150 mg tablet TAKE ONE TABLET BY MOUTH TWICE A DAY 07/27 completed Not Available Not Available Not Available buspirone 10 mg tablet Take 1 tablet twice a day by oral route. active Not Available Not Available No t Available lisinopri l 10 mg tablet TAKE 1 TABLET BY MOUTH ONCE DAILY DIRECTED 2024 active Not Available Not Available Not Avai lable nicotine 21 mg/24 hr daily transderm al patch APPLY 1 PATCH TOPICALL Y ONCE DAILY DIRECTED FOR 42 DAYS 01/09 completed Not Available Not Available Not Available gabapenti n 300 mg capsule Take 1 capsule 3 times a day by oral route. 07/02 completed Not Available Not Available Not Available triamtere ne 37.5 mg-hydroc hlorothia zide 25 mg tablet Take 1 tablet every day by oral route. 02/11 completed Not Available Not Available Not Available omeprazol e 20 mg capsule,d elayed release TAKE 1 CAPSULE BY MOUTH ONCE DAILY 07/02 completed Not Available Not Available Not Available furosemid e 20 mg tablet TAKE 1 TABLET BY MOUTH ONCE DAILY NEEDED 2023 active Not Available Not Available Not Avai lable norethind swati acetate 5 mg tablet TAKE ONE TABLET BY MOUTH EVERY DAY 01/20 completed Not Available Not Available Not Available gabapenti n 100 mg capsule 10/11 completed Not Available Not Available Not Available estradiol 0.5 mg tablet TAKE 1 TABLET BY MOUTH ONCE DAILY 10/29 completed hot flashes Not Available Not Available Not Available ergocalci ferol (vitamin D2) 1,250 mcg (50,000 unit) capsule TAKE 1 CAPSULE BY MOUTH ONCE A WEEK active Not Available Not Available No t Available ibuprofen 600 mg tablet TAKE 1 TABLET BY MOUTH THREE TIMES DAILY NEEDED FOR PAIN 05/15 completed Not Available Not Available Not Available methylpre dnisolone 4 mg tablets in a dose pack 08/26 completed Not Available Not Available Not Available albuterol sulfate HFA 90 mcg/actua tion aerosol inhaler INHALE 2 PUFFS BY MOUTH EVERY 8 HOURS active Not Available Not Available No t Available ondansetr on 4 mg disintegr ating tablet DISSOLVE 1 TABLET ON THE TONGUE FOUR TIMES DAILY NEEDED 01/09 completed Not Available Not Available Not Available fluticaso ne propionat e 50 mcg/actua tion nasal spray,bev pension Inhale 1 spray twice a day by intranas al route. 08/26 completed Not Available Not Available Not Available sertralin e 50 mg tablet Take 1 tablet every day by oral route. 08/02 completed Not Available Not Available Not Available dicyclomi ne 10 mg capsule TAKE 1 CAPSULE BY MOUTH FOUR TIMES DAILY 08/04 completed Not Available Not Available Not Available naproxen 500 mg tablet 05/15 completed Not Available Not Available Not Available metoclopr amide 10 mg tablet Take 1 tablet 4 times a day by oral route. 08/04 completed Not Available Not Available Not Available amoxicill in 875 mg-potass ium clavulana te 125 mg tablet TAKE 1 TABLET BY MOUTH EVERY 12 HOURS FOR 10 DAYS 04/13 completed Not Available Not Available Not Available amoxicill in 500 mg-potass ium clavulana te 125 mg tablet 10/11 completed Not Available Not Available Not Available nicotine 7 mg/24 hr daily transderm al patch Apply 1 patch every day by transder mal route as directed for 14 days. 01/08 completed Not Available Not Available Not Available buspirone 15 mg tablet active Not Available Not Available Not Available neomycin- polymyxin -hydrocor t 3.5 mg-10,000 unit/mL-1 % ear drops,bev p 10/11 completed Not Available Not Available Not Available escitalop patrice 10 mg tablet TAKE 1 TABLET BY MOUTH ONCE DAILY 10/29 completed switched to cymbalta Not Available Not Available Not Available nicotine 21mg/24hr -14mg/24h r-7mg/24h r daily transderm patches,s equentl Apply 1 patch by transder mal route. 11/22 completed Not Available Not Available Not Available Premarin 0.625 mg/gram vaginal cream 0.5g intravag inally everyday x 2 weeks, then twice weekly 07/11 completed Not Available Not Available Not Available duloxetin e 60 mg capsule,d elayed release TAKE 1 CAPSULE BY MOUTH ONCE DAILY IN THE EVENING 2024 active Not Available Not Available Not Avai lable Calcium 600 + D(3) 600 mg-5 mcg (200 unit) tablet TAKE 1 TABLET BY MOUTH TWICE DAILY 07/02 completed Not Available Not Available Not Available calcium 600 mg (as carbonate )-vitamin D3 10 mcg (400 unit) tablet TAKE 1 TABLET BY MOUTH TWICE DAILY 08/26 completed Not Available Not Available Not Available Symbicort 160 mcg-4.5 mcg/actua tion HFA aerosol inhaler INHALE 2 PUFFS BY MOUTH TWICE DAILY FOR BREATHIN G. RINSE MOUTH AFTER SECOND PUFF EVERY TIME active Not Available Not Available No t Available Linzess 145 mcg capsule TAKE 1 CAPSULE BY MOUTH DAILY 08/26 completed Not Available Not Available Not Available Pennsaid 20 mg/gram/a ctuation (2 %) topical soln in metered-d ose pump apply TWO pumps TO AFFECTED AREAS TWICE DAILY 01/08 completed Not Available Not Available Not Available Metamucil 3.4 gram/5.4 gram oral powder Week 1: Take 1 teaspoon mixed in water by mouth daily Week 2: Take 2 teaspoon s mixed in water by mouth daily Week 3 and afterwar ds: Take 1 Tablespo on mixed in water by mouth daily 08/26 completed Not Available Not Available Not Available naloxone 4 mg/actuat ion nasal spray CALL 911. ADMINIST ER A SINGLE SPRAY INTRANAS ALLY INTO ONE NOSTRIL UPON SIGNS OF OPIOID OVERDOSE . MAY REPEAT AFTER 3 MINUTES IF NO RESPONSE . active Not Available Not Available No t Available Tab-A-Vit e 400 mcg tablet 08/26 completed Not Available Not Available Not Available Vitals Date Recorded Body height Body mass index (BMI) Body weight Heart rate Body temperature Oxygen saturation Oxygen saturation in Arterial blood by Pulse oximetry Systolic blood pressure Diastolic blood pressure Provider Name and Address Organization Details Last Updated DateTime 3 174.63 cm 37.9 kg/m2 935857. 05 g 98 /min 98.2 [degF] 98 % 98 % 124 mm[Hg] 78 mm[Hg] Shania Will MA [facility] 3 14:47:03 Date Recorded Body height Body mass index (BMI) Body weight Body temperature Oxygen saturation Oxygen saturation in Arterial blood by Pulse oximetry Heart rate Systolic blood pressure Diastolic blood pressure Provider Name and Address Organization Details Last Updated DateTime 3 174.63 cm 36.4 kg/m2 195285. 13 g 98.1 [degF] 98 % 98 % 108 /min 124 mm[Hg] 82 mm[Hg] Shania Will MA [facility] 3 14:56:50 Date Recorded Body height Body mass index (BMI) Body weight Body temperature Oxygen saturation Oxygen saturation in Arterial blood by Pulse oximetry Heart rate Systolic blood pressure Diastolic blood pressure Provider Name and Address Organization Details Last Updated DateTime 4 174.63 cm 37 kg/m2 006180. 5 g 98 [degF] 98 % 98 % 93 /min 116 mm[Hg] 78 mm[Hg] Shania Will MA [facility] 4 15:19:24 Date Recorded Body height Body mass index (BMI) Body weight Oxygen saturation Oxygen saturation in Arterial blood by Pulse oximetry Heart rate Systolic blood pressure Diastolic blood pressure Provider Name and Address Organization Details Last Updated DateTime 4 174.63 cm 37.9 kg/m2 665067. 05 g 98 % 98 % 101 /min 116 mm[Hg] 84 mm[Hg] Shania Will MA [facility] 4 12:42:37 Date Recorded Body height Oxygen saturation Oxygen saturation in Arterial blood by Pulse oximetry Heart rate Systolic blood pressure Diastolic blood pressure Provider Name and Address Organization Details Last Updated DateTime 5 174.63 cm 96 % 96 % 88 /min 129 mm[Hg] 87 mm[Hg] Huseyin Underwood MA [facility] 5 17:37:53 Social History Question Answer Notes LastModified by Organizat ion Details LastModified Time Tobacco Smoking Status Current Every Day Smoker Shania Will MA null, [place] [facility] 05/11/2022 16:08:49 Do You Have An Advance Directive? No Information not available 10/11/2017 What Is Your Level Of Alcohol Consumption? Occasional Special Occasions Information not available 10/11/2017 Are You Blind Or Do You Have Difficulty Seeing? No Information not available 11/09/2020 Is Blood Transfusion Acceptable In An Emergency? Yes Information not available 10/11/2017 What Is Your Level Of Caffeine Consumption? Moderate Information not available 11/09/2020 How Much Tobacco Do You Chew? None Information not available 10/11/2017 In The 14 Days Before Symptom Onset, Have You Had Close Contact With A Laboratory-confi rmed COVID-19 While That Case Was Ill? No Information not available 08/04/2020 In The 14 Days Before Symptom Onset, Have You Had Close Contact With A Person Who Is Under Investigation For COVID-19 While That Person Was Ill? No Information not available 11/09/2020 Have You Been To An Area Known To Be High Risk For COVID-19? No Information not available 08/04/2020 Are You Currently Employed? No Information not available 10/11/2017 Are You Deaf Or Do You Have Serious Difficulty Hearing? No Information not available 11/09/2020 What Type Of Diet Are You Following? REGULAR Information not available 10/11/2017 Which Illicit Or Recreational Drugs Have You Used? None Information not available 10/11/2017 Do You Or Have You Ever Used E-cigarettes Or Vape? Former User Of Electronic Cigarettes [email or web address] Information not available 02/16/2019 Education 10 Information no t available 10/11/2017 What Is The Highest Grade Or Level Of School You Have Completed Or The Highest Degree You Have Received? 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 No Information not available 11/09/2020 Hard Of Hearing Or Deaf In One Or Both Ears? No Information not available 01/21/2020 Legally Blind In One Or Both Eyes? No Information not available 01/21/2020 Live Alone Or With Others? With Others Information not available 05/26/2014 Do You Have A High School Diploma Or Higher Education? No Information not available 08/04/2020 Do You Sometimes Have To Miss Your Medical Appointments Due To Difficult Getting Transportation? No Information not available 08/04/2020 Do You Feel Unfairly Treated Due To Things Such As Race, Age, Gender, Disability Or Some Other Reason? No Information not available 08/04/2020 Do You Feel Physically And Emotionally Safe While Living At Home? Yes Information not available 08/04/2020 Do You Feel Physically And Emotionally Safe In Your Neighborhood Or Other Public Places? Yes Information not available 08/04/2020 What Was The Date Of Your Most Recent Tobacco Screening? 07/10/2024 Information not available 07/10/2024 How Many Children Do You Have? 2 Information not available 10/11/2017 What Is Your Current Pack Years? 10-19packyear s Information not available 01/25/2022 Performs Monthly Self-breast Exam? Yes Information not available 10/11/2017 Do You Use Protection During Sex? No Information not available 10/11/2017 What Is Your Relationship Status? Information not available 10/11/2017 Do You Use Your Seat Belt Or Car Seat Routinely? Yes Information not available 11/09/2020 Seat Belts Used Routinely Yes Information not available 10/11/2017 Are You Sexually Active? Yes Information not available 10/11/2017 Smoke Alarm In Home Yes Information not available 01/21/2020 Do You Have Smoke And Carbon Monoxide Detectors In Your Home? Yes Information not available 08/04/2020 At What Age Did You Start Smoking Tobacco? 16 Information not available 05/26/2014 Are You Passively Exposed To Smoke? Yes Information not available 01/21/2020 Do You Or Have You Ever Used Smokeless Tobacco? Never Used Smokeless Tobacco [email or web address] Information not available 02/16/2019 How Much Tobacco Do You Smoke? 0.5 PPD [email or web address] Information not available 05/11/2022 General Stress Level Low Information not available 10/11/2017 Do You Feel Stressed (tense, Restless, Nervous, Or Anxious, Or Unable To Sleep At Night)? [id number] Information not available 11/09/2020 Do You Use Any Illicit Or Recreational Drugs? Yes Marijuana Information not available 01/25/2022 Do You Use Sunscreen Routinely? No Information not available 10/11/2017 Has Tobacco Cessation Counseling Been Provided? Yes Information not available 01/25/2022 On What Date Was Tobacco Cessation Counseling Provided? 07/10/2024 Information not available 07/10/2024 How Many Years Have You Smoked Tobacco? 25 [email or web address] Information not available 08/26/2021 Do You Or Have You Ever Used Any Other Forms Of Tobacco Or Nicotine? No Information not available 08/04/2020 Sex: Female Functional Status Question Answer Note LastModified by Organizat ion Details LastModified Time Are you able to care for yourself? Yes Information not available 05/26/2014 What is your exercise level? Occasional Information not available 10/11/2017 Mental Status None recorded. Family History Relationship Description Onset Age of this Age Resolved Age Notes LastModified by Organization Details LastModified Time Mother Diabetes mellitus [email or web address] Not available 2015 14:57:07 Mother Hypertensive disorder [email or web address] Not available 2015 14:57:07 Mother Congestive heart failure Mother swells up alot with this [email or web address] Not available 01/21/2020 14:06:20 Father Hypertensive disorder [email or web address] Not available 2015 14:57:07 Father Malignant neoplasm of skin [email or web address] Not available 2015 14:57:07 Father Malignant tumor of prostate [email or web address] Not available 2015 14:57:07 Daughter Celiac disease [email or web address] Not available 2019 10:56:38 Daughter Rheumatoid arthritis [email or web address] Not available 2019 10:57:00 Medical History Condition Response Coronary Artery Disease N Other N Atrial Fibrillation N High Blood Pressure Y Thyroid Problems N Kidney or Bladder Problems N Depression Y COPD N Blood Clots N GI Problems N Skin Problems N Eating Disorder N Anemia N Heart Attack ([place]) N Diabetes N Anxiety Disorder Y Muscle, Joint, or Bone Problems Y Seizures/Epilepsy N Acid Reflux (GERD) Y Cancer N Stroke Y Allergies Y Asthma N ADHD N Substance Abuse N High Cholesterol Y Hepatitis N Liver Disease N Schizophrenia N Headaches N Hypertension Y Osteoporosis N Heart Failure N Gynecological History Statement/Question Response Date of Last Mammogram 11/19/2020 STIs/STDs Y HPV Vaccine N Age at Menarche 13 Current Control Method Hysterectom y Age at First Child 23 Sexually Active? Y Menses Monthly N Date of Last Pap Smear 03/15/2014 Sexual Problems? N LMP Unknown Desired Control Method Hysterectom y Obstetrics History GPAL:G 3 P 2 0 1 2 Type Value Multiple Births 0 Full Term 2 Induced 0 Spontaneous 1 Premature 0 Living 2 Ectopics 0 Total 3 Immunizations Vaccine Type Date Status Note Provider Nam e and Address Organization Details Recorded Time COVID-19, mRNA, LNP-S, PF, 30 mcg/0.3 mL dose 1 completed Not Available [facility] 07/12/2023 14:28:55 influenza, unspecified formulation 2 completed Not Available [facility] 07/12/2023 14:28:55 pneumococcal, unspecified formulation 2 completed Not Available [facility] 07/12/2023 14:28:55 Influenza, split virus, quadrivalent, PF 9 completed Not Available [facility] 07/06/2019 02:39:21 Tdap 9 completed Not Available [facility] 07/06/2019 02:47:21 Influenza, split virus, quadrivalent, preservative 5 completed Not Available [facility] 07/06/2019 02:32:08 Influenza, split virus, quadrivalent, preservative 3 completed Shania Will [place] null, [place] - [facility] 05/15/2023 16:48:39 Influenza, split virus, trivalent, preservative 5 completed Huseyin Underwood [place] null, [place] - [facility] 07/11/2024 09:50:02 Past Encounters Encounter ID Performer Location Encounter Start Date Encounter Closed Date Diagnosis/Indication Diagnosis SNOMED-CT Code Diagnosis ICD10 Code Diagnosis Note [id number] ROBERT Mccann [facility] [address] [place] [address] 05/26/2014 14:47:37 05/26/2014 15:54:00 Obesity 934706086 Hypertensive disorder 86287886 Depressive disorder 20907771 Hyperlipidemia 70166497 Acute sinusitis 36289943 Recommend Flonase use x 1 month. Discussed administra tion technique. Acute tonsillitis 02590044 [id number] ROBERT Mccann angela [address] [place] [address] 07/04/2014 12:05:17 07/04/2014 13:41:47 Depressive disorder 84926378 Anxiety 51979886 Hypertensive disorder 52364420 Cough 72620110 Gastroesop hageal reflux disease 745872734 Was told in past that she needed a PPI plus H2, will resume PPI in addition to Zantac. Epistaxis 05330753 d/c Flonase and purchase OTC nasal saline [id number] ROBERT Mccann (Adult Med) [address] [place] [address] 12/03/2014 10:59:28 12/03/2014 11:57:49 Hypertensive disorder 92180077 Cough 65924809 Gastroesop hageal reflux disease 121516922 Obesity 553962192 Discus sed no more soda. 3 month weight loss goal: 10lbs [id number] Rachel (Adult Med) [address] [place] [address] 03/04/2015 12:12:03 03/04/2015 13:07:15 Gastroesophageal reflux disease 637423296 Hypertensive disorder 50353703 Cough 24332297 Obesity 008936496 Discus sed no more soda or Gatorade - really pushed water 3 month weight loss goal: 10lbs Short leg 737225172 Needs infl uenza immunization 211008947 [id number] ROBERT Mccann (Adult Med) [address] [place] [address] 05/11/2015 15:48:22 05/11/2015 16:27:22 Gastroesophageal reflux disease 431384429 K21.9 Hypertensive disorder 38 700110 I10 Cough 02065821 R05 Obesity 133149912 E66.9 Portion control Sciatica 12059024 M54.32 Advised to take ibuprofen Patient was asking for stronger medicaiton s and I offered her naproxen but she wanted something stronger and declined naproxen [id number] ROBERT Mccann (Adult Med) [address] [place] [address] 08/10/2015 14:51:10 08/10/2015 15:13:41 Gastroesophageal reflux disease 955448054 K21.9 Continue with Prilosec and zantac Hypertensive disorder 38 075756 I10 Continue with lisinopril 20mg Obesity 090005344 E66.9 Portion control States that now that it's getting nice out she is going start walking more Tobacco de pendence syndrome 05463537 F17.290 RTC 1 month Patches have worked in the past [id number] ROBERT Mccann (Adult Med) [address] [place] [address] 11/23/2015 15:05:09 11/23/2015 15:37:48 Gastroesophageal reflux disease 192068708 K21.9 Continue with Prilosec and zantac Hypertensive disorder 38 897131 I10 Continue with lisinopril 20mg Obesity 455675043 E66.9 Portion control States that now that it's getting nice out she is going start walking more Down 15lbs - very proud of herself - encouraged her to keep up the good work Her goal for herself over the next 4 months: about 15lbs Tobacco de pendence syndrome 52707659 F17.290 <1/2ppd [id number] ROBERT Mccann (Adult Med) [address] [place] [address] 07/26/2016 12:10:57 07/26/2016 13:18:43 Hypertensive disorder 60754058 I10 Stop lisinopril 20mg at this [id number] today and not on medication states that it was checked last week and was 134/80Advi sed to check BP daily and that if >140/90 to contact office and will restart; however, at this time no need for medication at this time d/t last BP checks WNL Tobacco de pendence syndrome 99812328 F17.290 Advised to quit<1/2pp d Gastroesop hageal reflux disease 033836991 K21.9 Continue with Prilosec and zantac Dyspnea 858952811 R06.00 Will check PFTs [id number] ROBERT Mccann (Peds) [address] [place] [address] 09/23/2016 11:35:44 09/27/2016 15:11:38 Hypertensive disorder 67717080 I10 118/76 - WNL, NAD no need for medication at this time Advised to check BP daily and that if >140/90 to contact office and will restart; however, at this time no need for medication at this time d/t last BP checks WNL Palpitations 53529489 R0 0.2 Will refer to cardiology - will likely need a heart monitorHTN well controlled and WNL in office todayAdvis ed that if this continues and she develops sweating, n/v/fever/ chills, pain in her left arm or left side of neck to go directly to the ER Tobacco de pendence syndrome 73252544 F17.290 Advised to quit<1/2pp d [id number] King MARIE (RESEARCH CONSULTANT) [address] [place] [address] 10/11/2017 16:12:09 10/17/2017 09:29:49 Gastroesophageal reflux disease 589991482 K21.9 Hernia of abdominal wall 894295360 K43.6 Family cecille nning surveillance 738874581 Z30.09 Postsurgic al menopause 145432563 E89.41 [id number] Anthony Johansen MD [facility] [address] [place] [address] 10/17/2017 15:36:49 10/17/2017 16:08:02 Gastritis 3928301 K29.70 [id number] Nenita Clark MD [facility] [address] [place] [address] 04/19/2018 14:08:12 04/19/2018 16:59:41 Melena [id number] K92.1 has intermitte nt diarrhea and constipati on, black tarry stools, stools with dark red blood. Might be related to endometrio sis within the colon, but worrisome for colon problems. Left lower quadrant pain 301894842 R10.32 may be adhesions, residual lesions of endometrio sis, or potentiall y diverticul itis. Gastroesop hageal reflux disease without esophagitis 055232297 K21.9 taking ranitidine 300 mg since insurance company does not want to cover the omeprazole . Symptoms not well controlled ; she was up most of the night with heartburn and aspiration of stomach contents into the lungs causing dyspnea and choking. Idiopathic peripheral neuropathy 39166189 G60.9 will check for neuropathy secondary to diabetes or pernicious anemia. History of endometriosis 3111430260 2414525 Z87.42 Patient had total hysterecto my with BSO due to endometrio sis with severe adhesions. 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 Mixed hyperlipidemia 267 634281 E78.2 takes atorvastat in. Body mass index 30+ - obesity 915047107 Z68.30 discussed low fat, low carb diet, and encouraged exercise. Standardiz ed adult depression screening tool completed [id number] 19849 Z13.89 patient does not appear to be significan tly depressed. 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 S74.22XD Mild inter mittent asthma 665655019 J45.20 [id number] Cecile Rod MA [facility] [address] [place] [address] 05/23/2018 11:58:34 05/23/2018 12:45:53 [id number] Cecile Rod MA [facility] [address] [place] [address] 05/30/2018 15:29:10 05/30/2018 16:36:46 [id number] Nenita Clark MD [facility] [address] [place] [address] 07/27/2018 15:58:02 08/06/2018 08:39:46 Acute laryngitis 5300662 J04.0 Bilateral hip joint pain 4717048389 9871923 M25.552 Chronic low back pain 27 8977467 M54.5 Mild inter mittent asthma 093366606 J45.20 Gastroesop hageal reflux disease 141159486 K21.9 Standard ed adult depression screening tool completed [id number] 97267 Z13.89 patient does not appear to be significan tly depressed. [id number] Nenita Clark MD [facility] [address] [place] [address] 08/10/2018 14:02:52 08/10/2018 16:21:26 Pain of right elbow joint 6858913112 7962433 M25.521 work requires extension of the right elbow Pain in ce rvical spine 312705240 M54.2 Screening mammography 24 432159 Z12.31 [id number] Nenita Clark MD [facility] [address] [place] [address] 12/21/2018 16:15:29 12/31/2018 09:24:43 Spider bite wound 757256493 W57.XXXA Pain of ri ght elbow joint 7355326829 8160363 M25.521 work requires extension of the right elbow Neuropathic pain 8979099 09 M79.2 [id number] Nenita Clark MD [facility] [address] [place] [address] 02/15/2019 14:07:30 02/19/2019 09:35:28 Tear of medial meniscus of knee 324313385 S83.242A Acute tonsillitis 443066 08 J03.90 Standardiz ed adult depression screening tool completed 7372761317 09758 Z13.89 patient does not appear to be significan tly depressed. [id number] Nenita Clark MD [facility] [address] [place] [address] 03/28/2019 11:08:14 04/01/2019 11:50:01 Reactive depression (situational) 37968526 F32.9 Patient denies suicidal or homicidal ideation [id number] Madeline Rodriguez [facility] [address] [place] [address] 04/11/2019 10:29:36 04/16/2019 03:46:37 [id number] Nenita Clark MD [facility] [address] [place] [address] 05/28/2019 12:06:12 06/10/2019 13:55:38 Lesion of skin of face 2486170894 06 L98.9 Chronic diarrhea 0657354 09 K52.9 Low back pain 643776861 M54.5 Bilateral hip joint pain 2944650235 2902634 M25.552 Pain in left knee 319642 8155 02444 M25.562 Chronic pe lvic pain of female 205472051 R10.2 [id number] Nenita Clark MD [facility] [address] [place] [address] 06/24/2019 11:36:14 06/26/2019 10:38:42 Abdominal pain 01190106 R10.9 alternatin g constipati on, diarrhea, nausea, vomiting, no gross melena or hematemesi s. Myofascial pain syndrome of lower back 309535370 M54.5 Bilateral hip joint pain 2468868159 8949008 M25.552 this script is in error History of endometriosis 6618388450 9013457 Z87.42 Patient had total hysterecto my with BSO due to endometrio sis with severe adhesions. Lumbago with sciatica 20 3139613 M54.40 Depression screening 171 154124 Z13.31 will monitor and consider adjusting antidepres sants. [id number] Nenita Clark MD [facility] [address] [place] [address] 07/04/2019 17:29:28 07/09/2019 11:27:07 Acute bronchitis with bronchospasm 47345847 J20.9 Patient advised to quit smoking. Acute tonsillitis 619461 08 J03.90 Gastroesop hageal reflux disease 870720369 K21.9 Lumbago with sciatica 20 7896912 M54.40 Reactive d epression (situational) 82845335 F32.9 F32.1 Patient denies suicidal or homicidal ideation Mixed hyperlipidemia 267 384916 E78.2 takes atorvastat in. Hormone re placement therapy 921646110 Z79.890 Obesity 608052583 E66.9 bmi 33.9 discussed low fat, low carb diet, and encouraged exercise. [id number] Nenita Clark MD [facility] [address] [place] [address] 08/02/2019 15:07:14 08/05/2019 11:30:24 Exacerbation of moderate persistent asthma 627160518 J45.41 Peripheral edema 1082883 00 R60.9 Lumbago with sciatica 20 7386609 M54.40 Moderate r ecurrent major depression 55125802 F33.1 patient to taper off sertraline and go on bupropion bid. Trying to give up smoking 990567353 Z72.0 [id number] KALI CHURCH NP [facility] [address] [place] [address] 11/14/2019 07:57:24 11/21/2019 10:09:38 Irritable bowel syndrome 96891204 K58.9 Diarrhea prominent but becomes constipate d with opioidsWil l not use loperimide due to additive constipati ng effects with opioids FODMAP diet mailed to patientWil l add fiber supplement To continue water intake, add exerciseOr graciela records from Dr. Lujan Gastroesop hageal reflux disease 856571667 K21.9 Taking PPIs incorrectl yWill continue omeprazole 20 mg daily with correct medication administra tion Adhesion of intestine 29 228908 K66.0 By report, related to endometrio sis [id number] Nenita Clark MD [facility] [address] [place] [address] 01/21/2020 09:08:59 02/03/2020 07:21:58 Peripheral edema 665550577 R60.9 Trying to give up smoking 114359001 Z72.0 Lumbago with sciatica 20 0389796 M54.40 [id number] King Ramos (RESEARCH CONSULTANT) [address] [place] [address] 02/12/2020 16:00:01 02/13/2020 08:58:47 Family planning surveillance 993465394 Z30.09 Irritable bowel syndrome 33871188 K58.9 Depressive disorder 3548 9007 F32.9 Chronic id iopathic constipation 46734832 K59.04 Screening mammography 24 401773 Z12.31 [id number] Nenita Clark MD [facility] [address] [place] [address] 06/04/2020 09:35:46 06/08/2020 19:50:29 Low back pain 195765070 M54.5 Lumbago with sciatica 20 4445998 M54.40 [id number] Sheri Dior MA [facility] [address] [place] [address] 07/08/2020 14:04:46 07/09/2020 14:32:02 Medication monitoring 943525692 Z51.81 [id number] King Ramos (RESEARCH CONSULTANT) [address] [place] [address] 08/04/2020 12:19:58 08/12/2020 13:48:57 Abdominal pain 89916311 R10.9 adhesions History of total hysterectomy 143511665 Z90.710 Screening for malignant neoplasm of breast 957498014 Z12.39 Moderate r ecurrent major depression 61959745 F33.1 Colitis 83175311 K52.9 Hormone abnormality 8445 2003 R89.1 [id number] Nenita Clark MD [facility] [address] [place] [address] 11/09/2020 08:02:33 11/09/2020 15:52:41 Screening mammography 11905892 Z12.31 Acute bronchitis 6679641 2 J20.9 Chicken soup, orange juice, popsicles, snow cones, slurpees, ice cream, tea with honey and lemon, hot lemonade, gatorade, and yogurt may make you feel better. [id number] Hany Underwood PA-C [facility] [address] [place] [address] 03/17/2021 12:12:24 03/18/2021 16:17:38 Sciatica 10410358 M54.30 Hyperlipidemia 41057320 E78.5 Hypertensive disorder 38 589581 I10 History of total hysterectomy 269720347 Z90.710 Anxiety 47922668 F41.9 Depressive disorder 3548 9007 F32.9 Gastroesop hageal reflux disease 761711855 K21.9 [id number] Hany Underwood PA-C [facility] [address] [place] [address] 05/26/2021 12:27:28 05/27/2021 08:16:11 Gastroesophageal reflux disease 852038575 K21.9 Sciatica 34097754 M54.30 Moderate p ersistent asthma 018497557 J45.41 Anxiety 12011697 F41.9 Depressive disorder 3548 9007 F32.9 Hyperlipidemia 04418033 E78.5 Hypertensive disorder 38 627952 I10 Obesity 820503855 E66.9 [id number] Shania Will MA [facility] [address] [place] [address] 07/02/2021 13:09:27 07/06/2021 09:54:31 [id number] Bob Plaza MD [facility] [address] [place] [address] 07/02/2021 15:13:19 07/06/2021 08:33:01 Chronic pelvic pain of female 823969710 R10.2 Sciatica 78744281 M54.30 [id number] MD Rachel Benitez (Adult Med) [address] [place] [address] 08/26/2021 13:50:28 08/27/2021 12:33:49 Chronic low back pain 025205637 M54.50 lengthy discussion carried with patient, at this point will issue PT for 6 weeks. Chronic ob structive pulmonary disease 37868318 J44.9 Stable. Smoker 79872813 F17.200 Advised her to quit smoking for the good health and finacial reasons. Dyslipidemia 924572799 E 78.5 Low animal fat diet. History of hypertension 820636140 Z86.79 Blood pressure is 100/70 mm HG, today 08-26-2021 , will reduce lisinopril from 20 mg /day to 10mg/day, she agreed, avoid NSAID, or ORTC decongesta nt. Obesity 680447685 E66.9 Diet, exercise and lose weight . Sciatica 63854484 M54.31 M54.32 Some stiffness of lower back, hard to make back butcher motion, able to bend over, unsteady heels gaits, In supine position SLRT is negative on both legs. According to her statement, discussed with patient, She will need scan of lower back to prove her herniated discs , no record available today, so this office won't issue hydrocodon e, and policy requires to have drug contract, drug screening anfd only one week supply allowed, and referral of pain management or spine surgeon will need scan first which insurance will need at least 6 weeks trail of medication and PT, so at this pint, will issue PT for 6 weeks. Gastroesop hageal reflux disease 310927133 K21.9 Stable. Generalize d anxiety disorder 53506350 F41.1 Will refill her nerve med. Edema of l ower extremity 199035902 R60.0 No edema of feet today, will renew as needed basis. Stay on low salt diet, [id number] ROBERT Weston (Adult Med) [address] [place] [address] 10/29/2021 13:59:36 11/02/2021 11:10:00 Gastroesophageal reflux disease 616162457 K21.9 Hyperlipidemia 12961010 E78.5 Hypertensive disorder 38 044343 I10 Depressive disorder 3548 9007 F32.9 Sciatica 74325482 M54.30 Interverte bral disc prolapse 25449496 M51.9 [id number] WALKER ARGUETA (RESEARCH CONSULTANT) [address] [place] [address] 01/25/2022 11:48:40 02/16/2022 07:04:33 Screening for malignant neoplasm of breast 547445637 Z12.31 Last mammogram was in 11/2020. Normal at that time. Due for annual screening. History of total hysterectomy 061931865 Z90.710 S/p ANJELICA/BSO in 2013. Obesity 830207652 E66.9 BMI 38.4. Educated patient on lifestyle measures including well balanced diet and daily 30 minutes of exercise. Atrophic vaginitis 41798 000 N95.2 Patient reports vaginal dryness causing dyspareuni a. Will start Premarin vaginal cream. Discussed moisturize rs and lubricants . RTC in 6 months. [id number] ROBERT Weston (Adult Med) [address] [place] [address] 04/13/2022 14:54:02 04/14/2022 11:49:17 Gastroesophageal reflux disease 348564654 K21.9 Interverte bral disc prolapse 00389507 M51.9 Hypertensive disorder 38 370215 I10 Sciatica 77536373 M54.30 Hyperlipidemia 46720039 E78.5 Edema of l ower extremity 421595605 R60.0 Depressive disorder 3548 9007 F32.9 Pain of le ft ankle joint 8772282464 1889923 M25.572 Anxiety 07948872 F41.9 [id number] MD Rachel Mccann (Adult Med) [address] [place] [address] 05/11/2022 16:02:48 05/19/2022 15:16:33 Sciatica 30781282 M54.30 Subcutaneous nodule 9532 5000 R22.9 [id number] MD Rachel Mccann (Adult Med) [address] [place] [address] 07/11/2022 16:44:40 07/15/2022 16:13:31 Hypertensive disorder 53544463 I10 Hyperlipidemia 19939063 E78.5 Sciatica 80176373 M54.30 Edema of l ower extremity 517289869 R60.0 History of hypertension 373457932 Z86.79 Gastroesop hageal reflux disease 837237714 K21.9 Depressive disorder 3548 9007 F32.A Pain of ri ght shoulder joint 6482860635 7730172 M25.511 Neck pain 40524695 M54.2 Low back pain 069435001 M54.50 Mass of neck 148620746 R 22.1 [id number] MD Rachel Mccann (Adult Med) [address] [place] [address] 10/10/2022 14:36:11 10/12/2022 09:49:15 Dyslipidemia 248161054 E78.5 Morbid obesity 720590700 E66.01 Sciatica 82701461 M54.30 Medication monitoring 39 0198482 Z51.81 Mass of neck 491591388 R 22.1 Neck pain 30083767 M54.2 Pain of ri ght shoulder joint 2051667264 2363199 M25.738 [id number] MD Rachel Mccann (Adult Med) [address] [place] [address] 02/06/2023 14:35:09 02/08/2023 15:46:45 Obesity 868139887 E66.9 Sciatica 68773452 M54.30 Edema of l ower extremity 715342936 R60.0 Mass of neck 505040779 R 22.1 Hyperglycemia 95897080 R 73.9 [id number] MD Rachel Mccann (Adult Med) [address] [place] [address] 05/15/2023 14:51:20 05/15/2023 15:40:46 Morbid obesity 822720129 E66.01 Multiple joint pain 3567 8005 M25.50 Add nsaid to regimen. Pt to call insurance re provider availabili ty Gastroesop hageal reflux disease 347296668 K21.9 Active immunization 3387 9002 Z23 [id number] MD Rachel Mccann [facility] (Adult Med) [address] [place] [address] 07/24/2023 15:05:26 08/03/2023 10:10:29 Morbid obesity 772778533 E66.01 Chronic low back pain 27 4050752 M54.50 Gastroesop hageal reflux disease 883364523 K21.9 Hyperglycemia 97027283 R 73.9 Hyperlipidemia 41878627 E78.5 Hypertensive disorder 38 428339 I10 [id number] Bob Plaza MD [facility] (Adult Med) [address] [place] [address] 01/09/2024 12:22:34 01/09/2024 13:08:36 Dyslipidemia 478797127 E78.5 Sciatica 15757094 M54.30 Hypertensive disorder 38 287414 I10 Depressive disorder 3548 9007 F32.A Edema of l ower extremity 202598841 R60.0 History of hypertension 170484111 Z86.79 Gastroesop hageal reflux disease 173598036 K21.9 Morbid obesity 592205150 E66.01 [id number] Bob Plaza MD [facility] (Adult Med) [address] [place] [address] 07/10/2024 17:24:55 07/17/2024 16:44:31 Sciatica 69529495 M54.30 Active immunization 3387 9002 Z23 Gastroesop hageal reflux disease 242189623 K21.9 PA on PPI Health Concerns Section Related Observation LastModified by Organization Detai ls LastModified Time None Recorded Concern Status LastModified by Organization Details LastModified Time None Recorded Advance Directives Directive N: Payers Encounter Date Sequence Insurance Name Policy Number Policy Red[place] Covered Member ID [place] Member ID Guarantor Name 02/06/2023 1 [facility] ON OR AFTER 12/17/20 (MEDICAID REPLACEMENT - HMO) Lexie Oconnell [id number] Lexie Oconnell 05/15/2023 1 [facility] ON OR AFTER 12/17/20 (MEDICAID REPLACEMENT - HMO) Lexie Oconnell [id number] Lexie Oconnell 07/24/2023 1 [facility] ON OR AFTER 12/17/20 (MEDICAID REPLACEMENT - HMO) Lexie Oconnell [id number] Lexie Oconnell 01/09/2024 1 [facility] - DOS ON OR AFTER 20 (MEDICAID REPLACEMENT - HMO) Lexie Oconnell [id number] Lexie Oconnell 07/10/2024 1 [facility] - DOS ON OR AFTER 20 (MEDICAID REPLACEMENT - HMO) Lexie Oconnell [id number] Lexie Oconnell Notes Date Note Type Note Provider Name and Address Organization Details Recorded Time 02/06/2023 text/html No new complaint s. F/u for glucose and cholesterol. Neck US never completed(no communication from radiology) Bob Plaza MD Attn: [address] [place], [address], [place] [facility] 02/06/2023 15:29:32 05/15/2023 text/html Here for three month f/u. Wants flu vaccine./ Has been unable to get response from pain management Bob Plaza MD Attn: [address] [facility], [place], [address], [place] [facility] 05/15/2023 15:30:49 07/24/2023 text/html No new complaint s. Has still not been able to contact pain management. Bob Plaza MD Attn: Accounting,[address] [facility], [place], [address], [place] [facility] 07/24/2023 15:46:09 01/09/2024 text/html Here for routine check up. Bob Plaza MD Attn: Accounting,[address] [facility], [place], [address], [place] [facility] 01/10/2024 07:44:56 07/10/2024 text/html Here for routine f/u. No benefit from H2 alyson. Will need to continue PPI Bob Plaza MD Attn: [address]ing,[address] [facility], [place], [address], [place] [facility] 07/10/2024 18:00:42 OBGyn Episode Ob Episode Information Episode Created Date Number of Fetuses Patient Bloodtype Patient rh Status Prepregnancy Weight lbs Domestic Partner Domestic Partner Phone Father Name Forming Fixer Status 10/12/19 18 1 CLOSED Fetus Data First Name Last Name Admitted to NICU Weight (g) Sex Living Outcome Pediatric Complications Fetus ID Race Codes Race Delivery Type 3175.14 4 F Full Term 42083 Vaginal Lyle Calculation Initial Lyle Date Initial Exam Date Initial Exam Provider Initial Ultrasound Date Last Menstrual Period Date Ultra Sound Weeks Gestation 0 Eighteen To Twenty Week Lyle Update Ultra Sound Date Fundal Height At Umbil Quickening Date Ultra Sound Latest Weeks Gestation Final Lyle Confirmed By Final Lyle Confirmed Date Final Lyle Date Ultra Sound Latest Days Gestation 0 0 Menstrual History Last Menstrual Date Menses Monthly On Bcp Conception Prior Menses Frequency Hcg Plus Date Menarche Onset Age Delivery Information Delivery Date Delivery Type Labor Anesthesia Weeks Gestation Incision Type Labor Labor Length Hrs Delivered By Post Complications Tubal Sterilization Discharge Date Comments 5 [facility] idural 40 Discharge Information Feeding Method Contraceptive Method Maternal HG B and HCT Levels Ob Episode Information Episode Created Date Number of Fetuses Patient Bloodtype Patient rh Status Prepregnancy Weight lbs Domestic Partner Domestic Partner Phone Father Name Forming Fixer Status 10/12/19 18 1 CLOSED Fetus Data First Name Last Name Admitted to NICU Weight (g) Sex Living Outcome Pediatric Complications Fetus ID Race Codes Race Delivery Type 3345.24 1 F Full Term 44607 Vaginal Lyle Calculation Initial Lyle Date Initial Exam Date Initial Exam Provider Initial Ultrasound Date Last Menstrual Period Date Ultra Sound Weeks Gestation 0 Eighteen To Twenty Week Lyle Update Ultra Sound Date Fundal Height At Umbil Quickening Date Ultra Sound Latest Weeks Gestation Final Lyle Confirmed By Final Lyle Confirmed Date Final Lyle Date Ultra Sound Latest Days Gestation 0 0 Menstrual History Last Menstrual Date Menses Monthly On Bcp Conception Prior Menses Frequency Hcg Plus Date Menarche Onset Age Delivery Information Delivery Date Delivery Type Labor Anesthesia Weeks Gestation Incision Type Labor Labor Length Hrs Delivered By Post Complications Tubal Sterilization Discharge Date Comments 3 [facility] idural 40 18 Discharge Information Feeding Method Contraceptive Method Maternal HG B and HCT Levels Ob Episode Information Episode Created Date Number of Fetuses Patient Bloodtype Patient rh Status Prepregnancy Weight lbs Domestic Partner Domestic Partner Phone Father Name Forming Fixer Status 10/12/19 18 1 CLOSED Fetus Data First Name Last Name Admitted to NICU Weight (g) Sex Living Outcome Pediatric Complications Fetus ID Race Codes Race Delivery Type , Spontane ous [id number] Lyle Calculation Initial Lyle Date Initial Exam Date Initial Exam Provider Initial Ultrasound Date Last Menstrual Period Date Ultra Sound Weeks Gestation 0 Eighteen To Twenty Week Lyle Update Ultra Sound Date Fundal Height At Umbil Quickening Date Ultra Sound Latest Weeks Gestation Final Lyle Confirmed By Final Lyle Confirmed Date Final Lyle Date Ultra Sound Latest Days Gestation 0 0 Menstrual History Last Menstrual Date Menses Monthly On Bcp Conception Prior Menses Frequency Hcg Plus Date Menarche Onset Age Delivery Information Delivery Date Delivery Type Labor Anesthesia Weeks Gestation Incision Type Labor Labor Length Hrs Delivered By Post Complications Tubal Sterilization Discharge Date Comments 2 10.5 Discharge Information Feeding Method Contraceptive Method Maternal HG B and HCT Levels
--- OUTSIDE RECORDS SUMMARY | 2024-09-26 01:38 | XMS_ITS | Clinical Summary ---
Author Organization [facility] Address [address] [place] [address] Care Team Providers Care Inpatient Pharmacist Name Role Phone Maylin Ratliff MD Primary Care Provider [phone] Allergies No known active allergies Medications ondansetron 4 MG disintegrating tablet Take 1 tablet (4 mg total) by mouth every 8 (eight) hours as needed for Nausea. 20 tablet 8 Active albuterol sulfate HFA (PROAIR HFA) 108 (90 Base) MCG/ACT inhaler Inhale 2 puffs into the lungs. Active gabapentin 800 MG tablet 9 Active ranitidine 300 MG tablet 9 Active meloxicam 15 MG tablet 9 Active traMADol 50 MG tablet Take 1 tablet by mouth 4 (four) times daily as needed. 3 Active sertraline 50 MG tablet 9 Active Active Problems Problem Noted Date Diagnosed Date Lateral epicondylitis of right elbow 03/11/2019 Asthma ([facility]) 04/10/2013 Heartburn 04/10/2013 Allergic rhinitis 04/09/2013 Generalized anxiety disorder 04/09/2013 Nicotine dependence 04/09/2013 Family History Medical History Relation Comments Hypertension Father Prostate Cancer Father Diabetes Mother Hypertension Mother Relation Status Comments Father Mother Social History Tobacco Use Types Packs/Day Years Used Date Smoking Tobacco: Every Day Cigarettes Smokeless Tobacco: Never Comments:0.5 PPD Alcohol Use Standard Drinks/Week Comments No 0 (1 standard drink = 0.6 oz pur e alcohol) AUDIT-C Answer Date Recorded Frequency of Alcohol Consumption Never 03/11/2019 Average Number of Drinks Not on file 019 Frequency of Binge Drinking Not on file 02/18 Comments No Sex and Gender Information Value Date Recorded Sex Assigned at Not on file Legal Sex Female 6:27 PM CDT Gender Identity Not on file Sexual Orientation Not on file Last Filed Vital Signs Vital Sign Reading Time Taken Comments Blood Pressure 118/66 03/11/2019 11:15 AM CDT Pulse 73 03/11/2019 11:15 AM CDT Temperature 37.2 C (98.9 F) 02/09/2018 12:02 PM CDT Respiratory Rate 16 02/09/2018 12:02 PM CDT Oxygen Saturation 98% 02/09/2018 12:02 PM CDT Inhaled Oxygen Concentration - - Weight 104.8 kg (231 lb) 03/11/2019 11:15 AM CDT Height 174 cm (5' 8.5 ) 03/11/2019 11:15 AM CDT Body Mass Index 34.61 03/11/2019 11:15 AM CDT Plan of Treatment Health Maintenance Due Date Last Done Comments Annual Physical 1983 Pneumococcal Vaccine: Pediat rics (0 to 5 Years) and At-Risk Patients (6 to 64 Years) (1 of 2 - PCV) 1986 Hepatitis C 1998 DTaP, Tdap and Td Vaccines ( 1 - Tdap) 1999 Hepatitis B Vaccines (1 of 3 - 19+ 3-dose series) 1999 Mammogram Screening 2020 COVID-19 Vaccine (1 - 2023-2 5 season) 2024 HPV Vaccines Aged Out No longer eligi ble based on patient's age to complete this topic Meningococcal B Vaccine Aged Out No l onger eligible based on patient's age to complete this topic Meningococcal Vaccine Aged Out No jovanny brown eligible based on patient's age to complete this topic RSV Immunizations Under 20 Months Aged Out No longer eligible based on patient's age to complete this topic Insurance [place] Care Teams Inpatient Pharmacist Relationship Specialty Start Date End Date Maylin Ratliff MD [address] [facility] [place] [address] PCP - General INTERNAL MEDICINE 02/09/18
--- OUTSIDE RECORDS SUMMARY | 2024-09-26 01:38 | XMS_ITS | Continuity of Care Document ---
Author Organization [facility] Address [address] [place] [address] [place] [address] Phone Care Team Providers Care [place] Cutter Operator Name Role Phone Ric Norris MD Unavailable Unavailable Allergies, Adverse Reactions, Alerts Substance Reaction Status Criticality No Known Allergies Active No Inform ation Medications Medication Instructions Dosage Effective Dates (start - stop) Status Comments ProAir HFA 90 mcg/actuation aerosol inhaler inhale 2 puff by inhalation route every 4 - 6 hours as needed - Active Klonopin 0.5 mg tablet take 1 tablet (0.5MG) by oral route 2 times every day as needed 0.5 MG - Active avoid driving or operate machines lisinopril 20 mg tablet take 1 tablet (20MG) by oral route every day 20 MG - Active Cymbalta 60 mg capsule,delayed release take 1 capsule (60MG) by oral route 2 times every day 60 MG - Active Zantac 150 mg tablet take 1 tablet (150MG) by oral route 2 times every day - Active Procedures Procedure Date PREV VISIT, NEW, AGE 18-39 Advance Directives Directive Yes / No Effective Date File Name No Information Encounters Encounter Description Practice Location Reason(s) For Visit Diagnoses Date Provider Providers Copied on Encounter [facility], [address] [facility] [place], [id number], tel:[phone] [facility] No Information [address] [place], [id number] , [place]. tel:[phone] PREV VISIT, NEW, AGE 18-39 [facility], [address], [place], [place], [id number], [place] tel:[phone] [facility] PHysical (chief complaint) Dietary surveillance and counselingRoutine Medical ExamRoutine Medical Exam [address], [place], [place], [id number] , [place]. tel:[phone] Family History Family Member Type Diagnosis Age At Onset Father Problem (finding) Hypertension Mother Problem (finding) Hypertension Brother Problem (finding) Alive and well Mother Problem (finding) Diabetes mellitus Payers Payer name Insurance type Covered republican ID Authoriza tion(s) No Information Social History Type Description Quantity Date Captured Comments Sex Female Smoking Status No Information Chief Complaint And Reason For Visit No Information Plan Of Treatment Date Type Action Status Goal Tobacco cessation counseling completed History Of Present Illness Encounter Date Complaint History Of Prese nt Illness No Information Instructions Date Instruction Additional Infor cornel Dietary counseling Related to Di etary surveillance counseling Decrease caloric intake Related to Dietary surveillance counseling Assessments Type Assessment Date No Information
--- OUTSIDE RECORDS SUMMARY | 2024-09-26 01:38 | XMS_ITS | Encounter Summary ---
Author Organization [facility] Address [address] [place] [id number] Care Team Providers Care Comparator Operator Name Role Phone Maylin Ratliff MD Primary Care Provider [phone] Encounter Details Date Type Department Care Team (Latest Contact Info) Description 04/24/2018 Abstract [facility] , Nathaniel Shannon MD Social History Tobacco Use Types Packs/Day Years Used Date Smoking Tobacco: Never Assessed Comments No Sex and Gender Information Value Date Recorded Sex Assigned at Not on file Legal Sex Female 6:27 PM CDT Gender Identity Not on file Sexual Orientation Not on file documented as of this encounter Plan of Treatment Not on file documented as of this encounter Visit Diagnoses Not on filedocumented in this encounter Care Teams Comparator Operator Relationship Specialty Start Date End Date Maylin Ratliff MD [address] [place] [address] PCP - General INTERNAL MEDICINE 02/09/18 documented as of this encounter
[2024-09-26 01:58] VITALS: BP 138/84; PULSE 97; RESP 18; O2SAT 97
--- NOTE | 2024-09-26 02:01 | ED.GENADULT ---
HPI - General Adult General Chief complaint: Abdominal Pain Stated complaint: WORSENING RLQ ABD PAIN X 3 DAYS Time Seen by Provider: 09/26/24 00:32 History of Present Illness HPI narrative: Patient for 44-year-old female who presents emergency department chief complaint of abdominal pain. Patient reports that she has been having nausea vomiting reports that pain is been ongoing for the last 3 days but has been impressively worse patient reports is worse patient reports that she has had a prior surgery for endometriosis and reports he has had a cholecystectomy. Related Data Home Medications ?Medication ?Instructions ?Recorded ?Confirmed ?Last Taken ?Type albuterol sulfate 90 mcg/actuation 90 mcg inhalation PRN PRN 05/04/21 07/29/24 Unknown History aerosol inhaler Shortness Of Breath Or Wheezing atorvastatin 10 mg tablet 10 mg PO DAILY 05/04/21 07/29/24 Unknown History budesonide-formoterol HFA 160 1 inh inhalation DAILY 05/04/21 07/29/24 Unknown History mcg-4.5 mcg/actuation aerosol inhaler (Symbicort) furosemide 20 mg tablet 20 mg PO PRN water retention 05/04/21 07/29/24 Unknown History gabapentin 800 mg tablet 800 mg PO QID 05/04/21 07/29/24 Unknown History omeprazole 20 mg capsule,delayed 20 mg PO DAILY 05/04/21 07/29/24 Unknown History release spironolactone 25 mg tablet 25 mg PO PRN PRN wheezing 05/04/21 07/29/24 Unknown History acetaminophen 500 mg tablet 1,000 mg PO TID PRN Pain 12/01/22 07/29/24 Unknown History cyclobenzaprine 10 mg tablet 10 mg PO TID 12/01/22 07/29/24 Unknown History duloxetine 60 mg capsule,delayed 60 mg PO DAILY 12/01/22 07/29/24 Unknown History release tramadol 50 mg tablet 50 mg PO TID 12/01/22 07/29/24 Unknown History Allergies Allergy/AdvReac Type Severity Reaction Status Date / Time codeine Allergy Intermediate Nausea Verified 07/29/24 10:05 Pertussis Vaccines Allergy Intermediate Swelling Verified 07/29/24 10:05 PERTUSSIS IMMUNE GLOBULIN Allergy Mild Swelling Uncoded 07/29/24 10:05 Review of Systems Review of Systems: A 10 system review of systems was completed on the patient and is negative except for what is stated in the HPI. Nursing and ancillary documentation was reviewed. [facility] Past Medical History Medical History AUDIE was hospitalized on June 2021 COPD (chronic obstructive pulmonary disease) GERD (gastroesophageal reflux disease) (02/28/12) Depression (02/28/12) Crohn's disease (02/28/12) Surgical History Surgical History Hx of cholecystectomy Family History Family History Father Hypertension Malignant neoplasm of prostate Family history of malignant neoplasm Mother Hypertension Family history of diabetes mellitus in first degree relative Depression Family history of attention deficit hyperactivity disorder (ADHD) Sibling Asthma Family history of attention deficit hyperactivity disorder (ADHD) Other Diabetes mellitus Social History Social History Smoking status: Current every day smoker Second hand tobacco smoke exposure: Yes Alcohol intake: never Exam Narrative: GENERAL: Well-appearing, well-nourished, and in moderate acute pain distress. HEAD: Normocephalic, atraumatic. EYES: PERRLA and EOMI. ENT: Nares clear, no rhinorrhea or epistaxis. Mucous membranes moist. NECK: Supple. CHEST: Clear to auscultation. No respiratory distress. HEART: Regular rate and rhythm. No murmur heard. Normal peripheral pulses. ABDOMEN: Soft, diffusely tender to palpation, nondistended, normal active bowel sounds. EXTREMITIES: Normal range of motion. No edema. SKIN: Warm, dry, no rash. NEURO: No focal deficits. Alert and oriented x3. PSYCH: Normal mood and affect. Course Vital Signs Vital signs: Vital Signs Temperature 37.0 C 09/26/24 00:26 Pulse Rate 114 H 09/26/24 00:26 Respiratory Rate 20 09/26/24 00:26 Blood Pressure 130/99 H 09/26/24 00:26 Pulse Oximetry 96 09/26/24 00:26 Oxygen Delivery Room Air 09/26/24 00:26 Temperature 37.0 C 09/26/24 00:26 Pulse Rate 94 09/26/24 04:48 Respiratory Rate 15 09/26/24 04:48 Blood Pressure 117/68 09/26/24 04:48 Pulse Oximetry 93 09/26/24 04:48 Oxygen Delivery Room Air 09/26/24 00:26 Medical Decision Making [facility] Narrative Medical decision making narrative: Differential diagnosis includes intra-abdominal infection, gastroenteritis, appendicitis, pancreatitis, small-bowel obstruction, UTI, pyelonephritis Foot laboratory studies were obtained on the patient showed a white count of 19 blood 1 electrolytes showed a BUN of 18 creatinine 1.01 urinalysis showed no evidence UTI but did show a specific gravity of greater than 1.045 CT scan of the abdomen pelvis showed no evidence of appendicitis and enterocolitis and or diarrheal disease Patient was given a dose of Bentyl and Toradol the patient will be given a prescription for Bentyl and Zofran for home the patient should start clear liquids Vital Signs Vital Signs: Vital Signs Temperature 37.0 C 09/26/24 00:26 Pulse Rate 114 H 09/26/24 00:26 Respiratory Rate 20 09/26/24 00:26 Blood Pressure 130/99 H 09/26/24 00:26 Pulse Oximetry 96 09/26/24 00:26 Oxygen Delivery Room Air 09/26/24 00:26 Temperature 37.0 C 09/26/24 00:26 Pulse Rate 94 09/26/24 04:48 Respiratory Rate 15 09/26/24 04:48 Blood Pressure 117/68 09/26/24 04:48 Pulse Oximetry 93 09/26/24 04:48 Oxygen Delivery Room Air 09/26/24 00:26 Lab Data 09/26/24 00:32 09/26/24 00:32 Labs: Lab Results 09/26/24 09/26/24 Range/Units 00:32 03:58 WBC 19.1 H (4.5-10.0) K/mm3 RBC 5.08 (4.2-5.4) M/mm3 Hgb 14.7 (12.0-15.0) g/dL Hct 45.5 (37.0-47.0) % MCV 89.6 (80-100) fl MCH 28.9 (26-34) pg MCHC 32.3 (32-36) g/dl RDW 15.3 H (11.5-14.5) % Plt Count 361 (150-375) k/mm3 MPV 10.2 (7.4-10.4) fl Immature Gran % (Auto) 0.7 H (0-0.5) % Neut % (Auto) 59.2 (45.5-73.1) % Lymph % (Auto) 34.1 (18.3-44.2) % [place] % (Auto) 4.7 (2.6-8.5) % Eos % (Auto) 0.9 (0-4.4) % Baso % (Auto) 0.4 (0.2-1.2) % Lymph # (Auto) 6.50 H (0.9-3.2) K/mm3 [place] # (Auto) 0.9 H (0.1-0.6) K/mm3 Eos # (Auto) 0.2 (0-0.3) K/mm3 Baso # (Auto) 0.1 (0.0-0.1) K/mm3 Abs Immat Gran (auto) 0.14 H (0.00-0.031) K/mm3 Absolute Neuts (auto) 11.3 H (1.3-6.7) K/mm3 Absolute Nucleated RBC 0.000 (0.0-0.012) K/mm3 Nucleated RBC % 0.0 (0.0-0.2) % Sodium 141 (137-145) mmol/L Potassium 3.8 (3.4-5.0) mmol/L Chloride 105 (98-107) mmol/L Carbon Dioxide 19 L (22-30) mmol/L Anion Gap 17 H (4-12) mmol/L BUN 18 H (7-17) mg/dL Creatinine 1.01 H (0.7-1.0) mg/dL Estim Creat Clear Calc 88 ml/min Estimated GFR 60 (59 - ) Glucose 218 H (65-110) mg/dL Calcium 9.9 (8.4-10.2) mg/dL Total Bilirubin 0.5 (0.2-1.3) mg/dL AST 26 (14-36) U/L ALT 27 (6-35) U/L Alkaline Phosphatase 87 (38-126) U/L Total Protein 8.0 (6.3-8.2) g/dL Albumin 4.8 (3.5-5.1) g/dL Lipase 104 (23-300) U/L Urine Color Yellow (Yellow) Urine Appearance Clear (Clear) Urine pH 5.5 (5.0-9.0) Ur Specific [place] > 1.045 H (1.001-1.035) Urine Protein 1+ H (Negative) mg/dL Urine Glucose (UA) Negative (Negative) mg/dL Urine Ketones Negative (Negative) mg/dL Ur Blood (Man) Negative (Negative) Urine Nitrate Negative (Negative) Urine Bilirubin Negative (Negative) Urine Urobilinogen 0.2 (<2.0) mg/dL Add Ur Microanalysis Reviewed Leukocyte Esterase Rfl Negative (Negative) ALINA/UL Urine RBC 0-2 (0-2) /hpf Urine WBC 0-5 (0-3) /hpf Ur Squamous Epith Cells Occasional (Few) /hpf Urine Bacteria None seen /hpf Urine Casts 0-2 Discharge Plan Discharge Clinical Impression: Abdominal pain Patient Disposition: Home Condition: Stable Instructions: Antibiotic Form, Abdominal Pain (ED) Patient Language: [place] Prescriptions: New dicyclomine 20 mg tablet 20 mg PO QID PRN (Reason: abdominal discomfort) Qty: 20 0RF ondansetron 4 mg tablet,disintegrating 4 mg PO Q8H PRN (Reason: nausea and vomiting) Qty: 10 0RF No Action atorvastatin 10 mg tablet 10 mg PO DAILY spironolactone 25 mg tablet 25 mg PO PRN PRN (Reason: wheezing) gabapentin 800 mg tablet 800 mg PO QID omeprazole 20 mg capsule,delayed release(DR/EC) 20 mg PO DAILY furosemide 20 mg tablet 20 mg PO PRN albuterol sulfate 90 mcg/actuation HFA aerosol inhaler 90 mcg INHALATION PRN PRN (Reason: Shortness Of Breath Or Wheezing) budesonide-formoterol [Symbicort] 160-4.5 mcg/actuation HFA aerosol inhaler 1 inh INHALATION DAILY cyclobenzaprine 10 mg tablet 10 mg PO TID tramadol 50 mg tablet 50 mg PO TID duloxetine 60 mg capsule,delayed release(DR/EC) 60 mg PO DAILY acetaminophen 500 mg tablet 1,000 mg PO TID PRN (Reason: Pain) ibuprofen 600 mg tablet 600 mg PO TID PRN (Reason: pain) Qty: 20 0RF prednisone 20 mg tablet 20 mg PO BID Qty: 10 0RF azithromycin 250 mg tablet See Rx Instructions .ROUTE .COMPLEX Qty: 6 0RF Rx Instructions: For 250 mg dose pack: take 500 mg today (day 1), then 250 mg for 4 days (days 2-5) lisinopril [Zestril] 20 mg tablet 20 mg PO DAILY Qty: 30 0RF ibuprofen 800 mg tablet 800 mg PO TID PRN (Reason: pain) 7 Days Qty: 21 0RF Follow-up/Referrals: PHYSICIAN,FLIGHT LINE MECHANIC [Primary Care Provider] - Jelani Hinton MD [Physician] - Time of Disposition: 06:06
--- NOTE | 2024-09-26 04:01 | PC.NURSE ---
Pt ambulated to bathroom 3 times to try and provide urine sample and was unsuccessful. This RN bladder scanned pt and saw around 100 mls. Straight cath performed, 100 ml of urine output.
[2024-09-26 04:48] VITALS: BP 117/68; PULSE 94; RESP 15; O2SAT 93
[2024-09-26 04:51] LABS: Add Urine Microscopic? YES; Appearance Urine Clear (Clear); Bacteria Urine None Seen /hpf; Bilirubin Urine Negative (Negative); Blood Urine Negative (Negative); Color Urine Yellow (Yellow); Glucose Urine UA Negative (Negative); Ketones Urine Negative (Negative); Leukocyte Esterase Ur Negative LEU/UL (Negative); Need Manual Microscopic Reviewed; Nitrate Urine Negative (Negative); Non Pathogenic Casts 0-2; Protein Urine 1+ mg/dL (Negative); RBC Urine 0-2 /hpf (0-2); Specific Grav Ur > 1.045 (1.001-1.035); Squamous Epithelial Cell Urine Occasional /hpf (Few); Urobilinogen Urine 0.2 mg/dL (<2.0); WBC Urine 0-5 /hpf (0-3); pH Urine 5.5 (5.0-9.0)
[2024-09-26] MEDS: DICYCLOMINE HCL INJ 20 MG/2 ML VIAL IM (05:40)
[2024-09-26] MEDS: KETOROLAC 15 MG/ML VIAL (*BKC) IV PUSH (05:40)
== END 2024-09-26 06:18 | disposition home or self-care (01) ==
PROVIDERS: Emergency Provider Emergency Medicine
DX: R10.9 Unspecified abdominal pain (principal); J44.9 Chronic obstructive pulmonary disease, unspecified; K21.9 Gastro-esophageal reflux disease without esophagitis; K50.90 Crohn's disease, unspecified, without complications; F32.A Depression, unspecified; F17.200 Nicotine dependence, unspecified, uncomplicated; Z86.16 Personal history of COVID-19; Z90.49 Acquired absence of other specified parts of digestive tract
CPT/HCPCS: 36415; 74177; 80053; 81001; 83690; 85025; 96361; 96372; 96374; 96375; 96376; 99284; J0500; J1171; J1885; J2405; J7030; Q9967